=== PATIENT | female | born 1965 | race Caucasian/White ===

== ENCOUNTER 2017-09-23 17:42 | Inpatient (IN) | payer BC ==
[~2017-09-23] VITALS: Ht 175.3 cm; Wt 107.0 kg
[2017-09-23] MEDS ORDERED: SODIUM CHLORIDE 0.9% 1000ML 1,000 ML IV STA ×2 (18:13→20:28)
[2017-09-23] MEDS ORDERED: ACET-1487 PO (18:27)
[2017-09-23 18:41] LABS: HEMATOCRIT 40.3 % (37-47); HEMOGLOBIN 13.3 g/dL (12.0-16.0); MEAN CELL VOLUME 90.6 fL (80-100); MEAN CORPUSCULAR HEMOGLOBIN 29.9 pg (25-34); MEAN PLATELET VOLUME 10.3 fL (7.4-10.4); PLATELET COUNT 304 K/uL (130-400); RED CELL DISTRIBUTION WIDTH CV 13.2 % (11.5-14.5); RED CELL DISTRIBUTION WIDTH SD 43.6 fL (36.4-46.3); WHITE BLOOD COUNT 26.93 K/uL (4.8-10.8)
[2017-09-23 18:59] LABS: BASO % 0.1 %; BASO ABS # 0.03 K/uL (0-0.2); EOS % 0.1 %; EOS ABS # 0.03 K/uL (0-0.5); IG# 0.09 K/uL (0.00-0.02); LYMPH % 6.2 %; LYMPH ABS # 1.68 K/uL (1.2-3.4); MONO % 7.9 %; MONO ABS # 2.14 K/uL (0.11-0.59); NEUT % 85.4 %; NEUT ABS # 22.96 K/uL (1.4-6.5); PTT PATIENT 22.9 SECONDS (21.0-31.0)
--- NOTE | 2017-09-23 19:06 | EMERGENCY ROOM VISIT NOTE ---
History Report prepared by Roger: Raysa Tan Under the Supervision of: Dr. Oziel Winchester M.D. First contact with patient: 17:43 Chief Complaint: SYNCOPE Stated Complaint: MULTIPLE SYNCOPAL EPISODES History of Present Illness The patient is a 52 year old white female with a past medical history of arrhythmia who presents to the ED with a cc of 3 episodes of syncope beginning 1 hour ago. She notes she fell down a step about 2.5 hours ago, and hit her L buttocks and Achilles tendon. The patient states she felt like she was going to pass out after this fall, but did not lose consciousness at this time. She reports she laid on the ground for 3-5 minutes before her sister helped her get to her feet. The patient notes she began to feel faint an hour after this fall, and had an episode of syncope. Her sister reports she witnessed this episode, and the patient twitched a little, before coming-to about 7 seconds later. She notes the patient had a total of 3 episodes of syncope before EMS arrived. The patient reports feeling weak and notes her discomfort is a 3-4/10 at this time. She states she has a little cough as she is fighting the tail end of a cold. The patient denies nausea, vomiting, or fevers. She notes she did not become incontinent during the syncopal episodes and denies a history of seizures. The patient states she does not take any blood thinners. She notes she is visiting from [place] this summer to take care of her ill father. Source of History: patient, family (sister) Onset: 1 hour Position: head Quality: other (syncope) Timing: other (3 epsiodes) Associated Symptoms: + cough, + weakness, No nausea, No vomiting Note: Denies: incontinence Review of Systems See HPI for pertinent positives and negatives. A total of ten systems were reviewed and were otherwise negative. Past Medical & Surgical Medical Problems: (1) Arrhythmia (2) Bradycardia (3) Pre-diabetes (4) Syncopal episodes Family History FHx: cancer FHx: diabetes mellitus FHx: hypertension FHx: lung cancer FHx: stroke Social History Smoking Status: Never Smoker Smokeless Tobacco Use: No Alcohol Use: occasionally (2-3 times/week) Marital Status: single Housing Status: lives alone Occupation Status: employed Current/Historical Medications Scheduled PRN Acetaminophen (Tylenol Arthritis Ext Rel), 650 MG PO UD PRN for Pain Allergies Coded Allergies: No Known Allergies (Unverified , 09/23/17) Physical Exam Vital Signs Date Time Temp Pulse Resp B/P (MAP) Pulse Ox O2 Delivery O2 Flow Rate FiO2 09/23/17 20:54 82 09/23/17 20:39 75 18 123/58 99 Room Air 09/23/17 19:42 75 16 135/62 99 Room Air 09/23/17 18:42 72 15 123/65 100 Nasal Cannula 3.0 09/23/17 18:37 66 09/23/17 18:33 32 09/23/17 18:33 0 09/23/17 18:32 0 09/23/17 18:28 70 126/69 78 124/67 44 09/23/17 17:57 64 09/23/17 17:49 36.9 65 18 139/55 100 Room Air 09/23/17 17:49 100 Room Air Physical Exam GENERAL: Awake, alert, well-appearing, NAD HENT: Normocephalic, atraumatic. EYES: Normal conjunctiva. Sclera non-icteric. PERRL. No anisocoria. NECK: Supple. No nuchal rigidity. FROM. RESPIRATORY: CTAB, no rhonchi, wheezing, crackles CARDIAC: RRR, no MRG ABDOMEN: Soft, NTND, BS+ MSK: No chest wall TTP, no LE edema. L gluteal and sacral ecchymosis. NEURO: CN 2-12 intact, 5/5 upper and lower extremity strength, no dysmetria, no drift, good finger to nose, no sensory deficits. Finger count grossly normal. SKIN: No rash or jaundice noted. Medical Decision & Procedures ER Provider Diagnostic Interpretation: Radiology results as stated below per my review and radiologist interpretation: CT SCAN OF THE BRAIN WITHOUT IV CONTRAST CLINICAL HISTORY: Change in mental status. COMPARISON STUDY: No priors. TECHNIQUE: Unenhanced axial CT scan of the brain is performed from the vertex to the skull base. A dose lowering technique was utilized adhering to the principles of ALARA. CT DOSE: 614.27 mGy.cm FINDINGS: Brain parenchyma: The brain parenchyma is normal in appearance. There is no hemorrhage, mass effect, or evidence of acute territorial ischemia by CT criteria. Fitzpatrick-white matter is preserved. No extra-axial fluid collection is seen. Ventricles, sulci, cisterns: Normal in configuration. Intracranial vasculature: The visualized intracranial vasculature at the skull base is normal in appearance. Calvarium: Unremarkable. Sinuses and mastoids: The visualized paranasal sinuses are clear. The mastoid air cells are well pneumatized. Orbits: The bony orbits are grossly intact. IMPRESSION: There is no hemorrhage, mass effect, or evidence of acute territorial ischemia by CT criteria. Electronically signed by: Cyril Lipscomb M.D. 09/23/2017 7:30 PM Dictated Date/Time: 09/23/2017 7:29 PM CHEST ONE VIEW PORTABLE HISTORY: elevated wbc, productive cough COMPARISON: None. FINDINGS: The lungs are clear. Cardiac silhouette is normal in size. No pleural effusions. No pneumothorax. IMPRESSION: No acute process. Electronically signed by: Andrés Bonds M.D. 09/23/2017 8:18 PM Dictated Date/Time: 09/23/2017 8:17 PM SACRUM COCCYX MIN 2 VIEWS CLINICAL HISTORY: s/p fall, sacral pain and low back pain and L gluteal ecchymosis COMPARISON STUDY: Pelvis and left hip 09/23/2017. FINDINGS: No fractures or subluxation within the sacrum or coccyx. Anterior angulation of the coccyx is considered a normal variant. Presacral soft tissues are intact. There is an oval-shaped 14 x 4.5 cm density within the gluteal soft tissues best seen on the lateral view. This favors a soft tissue hematoma. IMPRESSION: 1. No fractures within the sacrum or coccyx. 2. A 14 x 4.5 cm density within the gluteal soft tissues likely represents a soft tissue hematoma. L PELVIS/UNILATERAL HIP 1 VIEW CLINICAL HISTORY: s/p fall. Left hip pain. COMPARISON STUDY: None. FINDINGS: No fracture or dislocation within the pelvis or hips. Mild cartilage space narrowing within the left hips and small osteophytes at the acetabula consistent with degenerative change. Soft tissues are unremarkable. The sacrum appears intact. IMPRESSION: Mild degenerative changes within the bilateral hips. No fracture or dislocation within the pelvis or hips. Electronically signed by: Andrés Bonds M.D. 09/23/2017 8:17 PM Dictated Date/Time: 09/23/2017 8:11 PM Laboratory Results 09/23/17 18:28 Red Blood Count 4.45, Mean Corpuscular Volume 90.6, Mean Corpuscular Hemoglobin 29.9, Mean Corpuscular Hemoglobin Concent 33.0, Mean Platelet Volume 10.3, Neutrophils (%) (Auto) 85.4, Lymphocytes (%) (Auto) 6.2, Monocytes (%) (Auto) 7.9, Eosinophils (%) (Auto) 0.1, Basophils (%) (Auto) 0.1, Neutrophils # (Auto) 22.96, Lymphocytes # (Auto) 1.68, Monocytes # (Auto) 2.14, Eosinophils # (Auto) 0.03, Basophils # (Auto) 0.03 09/23/17 18:28 Test 09/23/17 18:28 White Blood Count 26.93 K/uL (4.8-10.8) Red Blood Count 4.45 M/uL (4.2-5.4) Hemoglobin 13.3 g/dL (12.0-16.0) Hematocrit 40.3 % (37-47) Mean Corpuscular Volume 90.6 fL (80-100) Mean Corpuscular Hemoglobin 29.9 pg (25-34) Mean Corpuscular Hemoglobin Concent 33.0 g/dl (32-36) Platelet Count 304 K/uL (130-400) Mean Platelet Volume 10.3 fL (7.4-10.4) Neutrophils (%) (Auto) 85.4 % Lymphocytes (%) (Auto) 6.2 % Monocytes (%) (Auto) 7.9 % Eosinophils (%) (Auto) 0.1 % Basophils (%) (Auto) 0.1 % Neutrophils # (Auto) 22.96 K/uL (1.4-6.5) Lymphocytes # (Auto) 1.68 K/uL (1.2-3.4) Monocytes # (Auto) 2.14 K/uL (0.11-0.59) Eosinophils # (Auto) 0.03 K/uL (0-0.5) Basophils # (Auto) 0.03 K/uL (0-0.2) RDW Standard Deviation 43.6 fL (36.4-46.3) RDW Coefficient of Variation 13.2 % (11.5-14.5) Immature Granulocyte % (Auto) 0.3 % Immature Granulocyte # (Auto) 0.09 K/uL (0.00-0.02) Prothrombin Time 10.7 SECONDS (9.0-12.0) Prothromb Time International Ratio 1.0 (0.9-1.1) Activated Partial Thromboplast Time 22.9 SECONDS (21.0-31.0) Partial Thromboplastin Ratio 0.9 Anion Gap 8.0 mmol/L (3-11) Est Creatinine Clear Calc Drug Dose 75.7 ml/min Estimated GFR () 65.7 Estimated GFR (Non- 56.7 BUN/Creatinine Ratio 25.2 (10-20) Calcium Level 8.7 mg/dl (8.5-10.1) Phosphorus Level 1.3 mg/dl (2.5-4.9) Magnesium Level 2.1 mg/dl (1.8-2.4) Total Bilirubin 0.3 mg/dl (0.2-1) Direct Bilirubin < 0.1 mg/dl (0-0.2) Aspartate Amino Transf (AST/SGOT) 14 U/L (15-37) Alanine Aminotransferase (ALT/SGPT) 27 U/L (12-78) Alkaline Phosphatase 52 U/L (45-117) Troponin I < 0.015 ng/ml (0-0.045) Total Protein 7.4 gm/dl (6.4-8.2) Albumin 3.9 gm/dl (3.4-5.0) Thyroid Stimulating Hormone (TSH) 0.734 uIu/ml (0.300-4.500) Laboratory results reviewed by me Medications Administered Medications (Trade) Dose Ordered Sig/Kari Route Start Time Stop Time Status Last Admin Dose Admin Sodium Chloride 1,000 ml @ 999 mls/hr Q1H1M STAT IV 09/23/17 18:13 09/23/17 19:13 DC 09/23/17 18:40 999 MLS/HR Potassium Phosphate 30 mmol/ Sodium Chloride 510 ml @ 88 mls/hr NOW ONCE IV 09/23/17 20:00 09/24/17 01:47 09/23/17 20:37 88 MLS/HR Sodium Chloride 1,000 ml @ 999 mls/hr Q1H1M STAT IV 09/23/17 20:28 09/23/17 21:28 09/23/17 20:37 999 MLS/HR ECG Per My Interpretation Indication: syncope Rate (beats per minute): 65 Findings: Q waves (Inferior), other (normal intervals. normal axis. ) Comparison ECG Date: Repeat EKG Change: no significant change (Rate increased to 70. No other change.) ED Course 1752: The patient was evaluated in room B2. A complete history and physical exam was performed. 1835: Concern for syncope. GCS 14, following commands, appears pale. 1939: The patient had a negative FAST exam. Patient w/o pericardial effusion, good squeeze. 2000: [facility] the [facility] The patient will be evaluated for further treatment and disposition. 2007: I reevaluated the patient. She verbalized understanding and agreement with the treatment plan. Medical Decision Nursing notes reviewed. Ancillary studies and prior records reviewed. The patient is a 52 year old white female with a past medical history of arrhythmia who presents to the ED with a cc of 3 episodes of syncope beginning 1 hour ago. Etiologies such as vasovagal event, infection, hypoglycemia, electrolyte abnormalities, cardiac sources, intracerebral event, toxicologic, neurologic, as well as others were entertained. Patient was seen and evaluated the bedside. Patient did report having a mechanical fall where she struck her left buttock on the edge of a stair. This was a low level fall. She did not fall down the stairs but just down one stair. The patient did have some pain in the left buttock area and does have some noted ecchymosis. The patient has been ambulatory. The patient did have 2 -3 subsequent syncopal episodes. There was a concern of possible shaking. But the patient was not postictal. The patient had a normal blood sugar upon arrival. The patient has a nonfocal neurologic exam. Patient did blood work completed, EKG, troponin, chest x-ray, and coccygeal/ sacrum and left lower extremity films ordered. Patient also did have CT of the brain ordered. Patient's EKG does show a Q-wave in the inferior lead III but no acute ischemic changes. I was called to the bedside as the patient did have a questionable period of pulselessness and/or apnea. This subsided fairly quickly but the patient was very pale in appearance. The patient was awake and alert with a GCS of 14. The patient was following commands appropriately. A repeat EKG was obtained and the patient did have pads placed on her chest. Patient's blood work did show an elevated white blood cell count but normal H&H and platelet count. I did perform a bedside ultrasound which showed that the patient appeared to have fairly good squeeze and no evidence of any pericardial effusion. The IVC was fairly flat. The patient was not complaining of any chest pains or shortness of breath. The patient does not complain of any headache. There is no evidence of any free fluid in the pelvis, left upper quadrant, right upper quadrant per the FAST exam. I believe PE or dissection less likely given the patient's lack of symptoms and no evidence of plethoric IVC and the patient is not hypotensive, tachycardic, nor hypertensive. Patient CT the brain negative. Patient was noted to have low phosphorus. IV replacement was ordered. Given the patient's recurrent syncope and questionable apnea pulseless episode I believe she would benefit from further evaluation and treatment in telemetry. I did speak with the on-call hospitalist who agreed to further evaluate and treat the patient. The patient was admitted to the medicine service. Further x-rays did not show any acute changes with the exception of a likely hematoma in the left gluteal region which is consistent with the patient's exam. Given the patient's normal H&H, lack of tachycardia, and normal blood pressure I would be less likely to believe that the patient is having an active acute ongoing bleed in the left buttock area. A CT of the abdomen pelvis was ordered by the hospitalist for further evaluation. Medication Reconcilliation Current Medication List: was personally reviewed by me Blood Pressure Screening Patient's blood pressure: Normal blood pressure Blood pressure disposition: Did not require urgent referral Consults Time Called: 1947 Consulting Physician: Blane Rendon hospitalist Returned Call: 2000 Discussed the patient's case with Blane Rendon hospitalist. The patient will be evaluated for further treatment and disposition. Impression Primary Impression: Syncope Additional Impressions: Fall Contusion of buttock Hypophosphatemia Scribe Attestation The scribe's documentation has been prepared under my direction and personally reviewed by me in its entirety. I confirm that the note above accurately reflects all work, treatment, procedures, and medical decision making performed by me. Departure Information Dispostion Being Evaluated By Hospitalist Patient Instructions My [facility] Problem Qualifiers Primary Impression: Syncope Syncope type: unspecified Qualified Codes: R55 - Syncope and collapse Additional Impressions: Fall Encounter type: initial encounter Qualified Codes: W19.XXXA - Unspecified fall, initial encounter Contusion of buttock Encounter type: initial encounter Qualified Codes: S30.0XXA - Contusion of lower back and pelvis, initial encounter
--- NOTE | 2017-09-23 19:31 | DIAGNOSTIC IMAGING REPORT ---
CT SCAN OF THE BRAIN WITHOUT IV CONTRAST CLINICAL HISTORY: Change in mental status. COMPARISON STUDY: No priors. TECHNIQUE: Unenhanced axial CT scan of the brain is performed from the vertex to the skull base. A dose lowering technique was utilized adhering to the principles of ALARA. CT DOSE: 614.27 mGy.cm FINDINGS: Brain parenchyma: The brain parenchyma is normal in appearance. There is no hemorrhage, mass effect, or evidence of acute territorial ischemia by CT criteria. Fitzpatrick-white matter is preserved. No extra-axial fluid collection is seen. Ventricles, sulci, cisterns: Normal in configuration. Intracranial vasculature: The visualized intracranial vasculature at the skull base is normal in appearance. Calvarium: Unremarkable. Sinuses and mastoids: The visualized paranasal sinuses are clear. The mastoid air cells are well pneumatized. Orbits: The bony orbits are grossly intact. IMPRESSION: There is no hemorrhage, mass effect, or evidence of acute territorial ischemia by CT criteria. Electronically signed by: Cyril Lipscomb M.D. 09/23/2017 7:30 PM Dictated Date/Time: 09/23/2017 7:29 PM
[2017-09-23 19:33] LABS: ALBUMIN 3.9 gm/dl (3.4-5.0); ALKALINE PHOSPHATASE 52 U/L (45-117); ALT/SGPT 27 U/L (12-78); AST/SGOT 14 U/L (15-37); BLOOD UREA NITROGEN 28 mg/dl (7-18); CALCIUM 8.7 mg/dl (8.5-10.1); CARBON DIOXIDE 24 mmol/L (21-32); CREATININE 1.11 mg/dl (0.60-1.20); GLUCOSE 179 mg/dl (70-99); PHOSPHORUS 1.3 mg/dl (2.5-4.9); POTASSIUM 3.9 mmol/L (3.5-5.1); SODIUM 136 mmol/L (136-145); TOTAL PROTEIN 7.4 gm/dl (6.4-8.2)
[2017-09-23] MEDS ORDERED: POTASSIUM PHOS 3 MMOL/1 ML INFUSION IV STA (19:45)
[2017-09-23] MEDS ORDERED: POTASSIUM PHOSPHATE INJ 30 MMOL in SODIUM CHLORIDE 0.9% 500ML 500 ML IV ONE (20:00)
--- NOTE | 2017-09-23 20:18 | DIAGNOSTIC IMAGING REPORT ---
L PELVIS/UNILATERAL HIP 1 VIEW CLINICAL HISTORY: s/p fall. Left hip pain. COMPARISON STUDY: None. FINDINGS: No fracture or dislocation within the pelvis or hips. Mild cartilage space narrowing within the left hips and small osteophytes at the acetabula consistent with degenerative change. Soft tissues are unremarkable. The sacrum appears intact. IMPRESSION: Mild degenerative changes within the bilateral hips. No fracture or dislocation within the pelvis or hips. Electronically signed by: Andrés Bonds M.D. 09/23/2017 8:17 PM Dictated Date/Time: 09/23/2017 8:11 PM
--- NOTE | 2017-09-23 20:20 | DIAGNOSTIC IMAGING REPORT ---
CHEST ONE VIEW PORTABLE HISTORY: elevated wbc, productive cough COMPARISON: None. FINDINGS: The lungs are clear. Cardiac silhouette is normal in size. No pleural effusions. No pneumothorax. IMPRESSION: No acute process. Electronically signed by: Andrés Bonds M.D. 09/23/2017 8:18 PM Dictated Date/Time: 09/23/2017 8:17 PM
[2017-09-23] MEDS ORDERED: POLYETHYLENE (MIRALAX) 17 GM PACK PO PRN (20:30)
[2017-09-23] MEDS ORDERED: NITROGLYCERIN 0.4 MG SL PER TAB CHARGE SL PRN (20:30)
[2017-09-23] MEDS ORDERED: ALUMINUM/MAGNESIUM/SIMETH (MAALOX MAX) 30 ML UDC PO PRN (20:30)
--- NOTE | 2017-09-23 20:45 | DIAGNOSTIC IMAGING REPORT ---
SACRUM COCCYX MIN 2 VIEWS CLINICAL HISTORY: s/p fall, sacral pain and low back pain and L gluteal ecchymosis COMPARISON STUDY: Pelvis and left hip 09/23/2017. FINDINGS: No fractures or subluxation within the sacrum or coccyx. Anterior angulation of the coccyx is considered a normal variant. Presacral soft tissues are intact. There is an oval-shaped 14 x 4.5 cm density within the gluteal soft tissues best seen on the lateral view. This favors a soft tissue hematoma. IMPRESSION: 1. No fractures within the sacrum or coccyx. 2. A 14 x 4.5 cm density within the gluteal soft tissues likely represents a soft tissue hematoma. Electronically signed by: Andrés Bonds M.D. 09/23/2017 8:44 PM Dictated Date/Time: 09/23/2017 8:42 PM
[2017-09-23 21:25] VITALS: BP 138/78; PULSE 77; TEMP 36.9; Ht 175.3 cm; Wt 107.0 kg
--- NOTE | 2017-09-23 21:58 | DIAGNOSTIC IMAGING REPORT ---
ABDOMEN AND PELVIS CT WITHOUT CONTRAST CT DOSE: 803.04 mGy.cm HISTORY: FALL. CONTUSION IN BUTTOCK REGION TECHNIQUE: Multiaxial CT images of the abdomen and pelvis were performed without contrast. A dose lowering technique was utilized adhering to the principles of ALARA. COMPARISON STUDY: Pelvis and left hip 09/23/2017. FINDINGS: Within the left lower flank/gluteal region there is a 16 x 13 x 3 cm subcutaneous hematoma. There is surrounding fat stranding consistent with additional contusion. Mild asymmetric enlargement of the left gluteus raegan muscle and comparison to the right which likely represents a small intramuscular hematoma. No fractures within the visualized osseous structures. The lung bases are clear. No retroperitoneal hematoma. The unenhanced liver, spleen, adrenal glands, and pancreas are unremarkable. Subtle hyperdensity layering within the gallbladder may represent small stones. Normal left kidney. There are 3 stones within the right kidney with the largest measuring 1 cm. No ureteral stones. No hydronephrosis. The bladder, uterus, and adnexa are unremarkable. No retroperitoneal lymphadenopathy. Suboptimal evaluation for bowel pathology due to the lack of intravenous and oral contrast. However, no evidence for bowel obstruction. Multiple colonic diverticula. There is minimal inflammatory change adjacent to a single diverticulum within the distal descending colon best seen on image 268. This is consistent with a developing acute diverticulitis. No perforation or abscess. Normal appendix. IMPRESSION: 1. There is a 16 x 13 x 3 cm subcutaneous hematoma within the left lower flank/gluteal region. There is surrounding fat stranding consistent with additional subcutaneous contusion. 2. Mild asymmetric enlargement of the left gluteus raegan muscle in comparison to the right which likely represents a small intramuscular hematoma. 3. No fractures within the visualized osseous structures. 4. Developing acute diverticulitis at the descending colon. No perforation or abscess identified. 5. Right-sided nephrolithiasis. No hydronephrosis. Electronically signed by: Andrés Bonds M.D. 09/23/2017 9:56 PM Dictated Date/Time: 09/23/2017 9:42 PM
[2017-09-23] MEDS: INSULIN ASPART 100 UNITS/ML 3 ML PEN SC SCH (22:00)
[2017-09-23] MEDS ORDERED: GLUCAGON FOR INJ 1 MG VIAL IM PRN (22:00)
[2017-09-23] MEDS ORDERED: CEFTRIAXONE SOD INJ 2,000 MG in DEXTROSE 5% 50ML 50 ML IV SCH (22:00)
[2017-09-23] MEDS ORDERED: GLUCOSE 10 TABS/TUBE PO PRN (22:00)
[2017-09-23] MEDS ORDERED: GLUCOSE 40% GEL 15 GM TUBE PO PRN (22:00)
[2017-09-23] MEDS ORDERED: DEXTROSE 50% 50 ML SYR IV PRN (22:00)
[2017-09-23] MEDS ORDERED: CARBOHYDRATES FOR HYPOGLYCEMIA PO PRN (22:00)
[2017-09-23] MEDS: SODIUM CHLORIDE 0.9% 1000ML 1,000 ML IV SCH (22:04)
[2017-09-23] MEDS ORDERED: PIPERACILL/TAZOBAC CONSULT ACTIVE PRN (22:30)
[2017-09-23 22:46] LABS: HEMOGLOBIN 12.7 g/dL (12.0-16.0)
[2017-09-23] MEDS ORDERED: PIPERACILL/TAZOBAC IV 3.375 GM in DEXTROSE 5% 100ML 100 ML IV ONE (23:00)
--- NOTE | 2017-09-23 23:08 | HISTORY & PHYSICAL EXAMINATION ---
DATE OF ADMISSION: 09/23/2017 CHIEF COMPLAINT: Syncope. HISTORY OF PRESENT ILLNESS: This is a 52-year-old female with past medical history significant for obesity and prediabetes, presents with syncopal episodes. The patient is from [place] and has come to [place] to visit her father who is sick to take care of him and also for vacation for the summer. Today, she reports it was wet because of rain and she slipped on the steps of the porch and had a mechanical fall and she fell on her buttocks. Her sister helped her to get up.When she stood up she and had a syncopal episode where her sister tried to wake her up with a slap on the face, but she noticed that her eyes were rolling up and felt itching of the shoulder, but no shaking of hands or legs, no tongue biting, no bowel or bladder incontinence. It lasted for a few seconds and she came up.Had total of 3 episodes before the EMS arrived and when she was brought into the ER, she was alert and awake and vitals stable. When they were checking her blood pressure lying, sitting, and standing, she was okay when she was lying and sitting, but when she tried to get up , she again passed out and there was a brief period of bradycardia and was not responding, but then again she came back and she is stable currently. Patient says she did not eat or drink much for last 3 days because she did not feel like drinking.Otherwise she was doing okay. Denies any headaches. No dizziness, no earache, no runny nose, no blurred vision, no sore throat or difficulty swallowing. Some congestion from her sinuses. No chest pain, no shortness of breath, no cough, no fever, no chills, no nausea, . Normal appetite. No recent weight gain or weight loss. Has some night flashes. Has some lower abdominal cramps which are there for some time. Normal bowel and bladder movements. Denies any blood in the stools or black stools. Denies any blood in the urine. No swelling of the legs, no rash. Currently, resting comfortably and hemodynamically stable. The patient had this kind of presyncopal symptoms whenever she was dehydrated in the past. ALLERGIES: No known drug allergies. PAST MEDICAL HISTORY: As mentioned above. PAST SURGICAL HISTORY: None. MEDICATIONS: The patient is not taking any medications currently except for the [id number] p.r.n. medications, both Tylenol and Benadryl. FAMILY HISTORY: Significant for father and brother had diabetes. Father had prostate cancer, astrocytoma of the spine, and melanoma of the foot, which was excised. He also has recently had 2 tick-borne illnesses. Mother had a stroke. SOCIAL HISTORY: No smoking history. Used drink alcohol drink every day but quit about 10 months ago. Right now drinks couple of times a week. Visiting from [place] to [place] to take care of her father for the summer. REVIEW OF SYSTEMS: As per HPI. Rest of review of systems negative. PHYSICAL EXAMINATION: GENERAL: The patient is obese, not in distress. VITAL SIGNS: Temperature 36.9, pulse 75, respiratory rate 16, blood pressure 135/62, oxygen 99% on 3 liters. HEENT: No pallor, no icterus. Pupils equal, round, reactive to light. NECK: No JVD or neck masses, no carotid bruits. CARDIOVASCULAR: S1, S2 heard, regular rate and rhythm, no murmur, no gallop. RESPIRATORY SYSTEM: Clear to auscultation bilaterally. No wheezing, no crackles. ABDOMEN: Soft, bowel sounds present. Nontender. No distention. CENTRAL NERVOUS SYSTEM: Cranial nerves II through XII grossly intact, nonfocal. EXTREMITIES: No edema, no erythema. LABORATORY DATA: WBC 26.9, hemoglobin 13.3, hematocrit 40.3, platelets 304. Sodium 136, potassium 3.7, chloride 104, bicarbonate 24, BUN 28, creatinine 1.1, serum glucose 179, calcium 8.7, phosphorus 1.3, magnesium 2.1, total bilirubin 0.3, direct bilirubin less than 0.1, AST 14, ALT 27, alkaline phosphatase 52. Troponin 1 less than 0.01, . PT 10.7, INR 1, APTT 22.9. Left pelvic and hip x-ray, mild degenerative changes in the bilateral hips, no fracture or dislocation within the pelvis or hips. CT of the head, no acute findings seen. Chest x-ray, no acute process seen. EKG: Normal sinus rhythm at the rate of 70. No significant change from the previous EKG found. ASSESSMENT AND PLAN: 1. This 52-year-old female presents with syncopal episodes post mechanical fall on the porch on the steps because of wetness from the rain. After that she had 3 episodes of syncopal episodes, one in the ER when she stood up for blood pressure check up when she heart rate went low. She says she is not drinking much since last 3 days because she did not feel like drinking. She is on IV fluids. Check orthostatic hypotension. Also echocardiogram and close monitor on tele floor and because of these recurrent episodes, we will consult cardiology for further opinion. 2. Hypophosphatemia, we will replace. 3. Fall and Left gluteal hematoma 13x 14cm hematoma. follow h and h. Surgery consult. 4. Leukocytosis,possible stress. Early diverticulitis on ct scan. started on iv Zosyn. Surgery consult. 5. Prediabetes, We will check HbA1c level and place on insulin sliding scale. 6. Deep venous thrombosis prophylaxis, sequential compression devices for now. 7. Disposition: Admit to tele floor. Expect to discharge home and follow with her family doctor. Level 1 full code. MTDD
[2017-09-23 23:22] VITALS: BP 143/86; PULSE 75; TEMP 36.9; O2SAT 99
[2017-09-24] VITALS (7 sets, daily range): BP systolic 111–129; BP diastolic 62–77; PULSE 81–91; TEMP 36.6–37.1; O2SAT 98–100
[2017-09-24] MEDS: PIPERACILL/TAZOBAC IV 3.375 GM in DEXTROSE 5% 100ML 100 ML IV SCH ×3 (03:19→20:51)
[2017-09-24] MEDS ORDERED: SODIUM CHLORIDE 0.65% NA SOLN 45 ML (OCEAN) PRN (04:15)
[2017-09-24] MEDS: FLUTICASONE PROPIONATE NA SPR 16 GM BTL SCH ×2 (04:27→07:54)
[2017-09-24 04:47] LABS: BASO % 0.2 %; BASO ABS # 0.02 K/uL (0-0.2); EOS % 0.4 %; EOS ABS # 0.04 K/uL (0-0.5); HEMATOCRIT 33.2 % (37-47); HEMOGLOBIN 10.9 g/dL (12.0-16.0); IG# 0.01 K/uL (0.00-0.02); LYMPH % 21.5 %; LYMPH ABS # 2.04 K/uL (1.2-3.4); MEAN CELL VOLUME 90.5 fL (80-100); MEAN CORPUSCULAR HEMOGLOBIN 29.7 pg (25-34); MEAN CORPUSCULAR HGB CONC 32.8 g/dl (32-36); MEAN PLATELET VOLUME 10.1 fL (7.4-10.4); MONO % 14.6 %; MONO ABS # 1.38 K/uL (0.11-0.59); NEUT % 63.2 %; NEUT ABS # 5.98 K/uL (1.4-6.5); PLATELET COUNT 256 K/uL (130-400); RED CELL DISTRIBUTION WIDTH CV 13.2 % (11.5-14.5); RED CELL DISTRIBUTION WIDTH SD 43.5 fL (36.4-46.3); WHITE BLOOD COUNT 9.47 K/uL (4.8-10.8)
[2017-09-24 04:49] LABS: BLOOD UREA NITROGEN 19 mg/dl (7-18); CALCIUM 7.4 mg/dl (8.5-10.1); CARBON DIOXIDE 23 mmol/L (21-32); CREATININE 0.83 mg/dl (0.60-1.20); GLUCOSE 101 mg/dl (70-99); SODIUM 139 mmol/L (136-145)
[2017-09-24 04:54] LABS: CKMB 1.5 ng/ml (0.5-3.6); PHOSPHORUS 3.4 mg/dl (2.5-4.9)
[2017-09-24] MEDS: SODIUM CHLORIDE 0.9% 1000ML 1,000 ML IV SCH ×2 (06:28→16:27)
[2017-09-24 06:39] LABS: HEMOGLOBIN A1C 6.3 % (4.5-5.6)
[2017-09-24] MEDS: INSULIN ASPART 100 UNITS/ML 3 ML PEN SC SCH ×4 (07:00→20:51)
[2017-09-24] MEDS ORDERED: DEXTROSE 5% 1000ML 1,000 ML IV SCH (07:15)
--- NOTE | 2017-09-24 08:21 | Cardiology Progress Note ---
Cardiology Progress Note Date of Service Sep 24, 2017. Cardiology Progress Note PRELIMINARY TRANSTHORACIC ECHOCARDIOGRAM REPORT. Name: BECCA HERNÁNDEZ Study Date: 09/24/2017 07:14 AM BP: 111/62 mmHg Patient Location: .^16^1 HR: 88 : 1965 (M/d/yyyy) Gender: Female Height: 69 in Age: 52 yrs Ethnicity: [place] Weight: 232 lb Ordering Physician: Gordon Sheikh Referring Physician: Self, Referred Performed By: Manju Stanley [facility] Reason For Study: SYNCOPE BSA: 2.2 m2. SUMMARY: The study was technically adequate. No regional wall motion abnormalities noted. Ejection Fraction = 65-70%. The right ventricle is normal in size and function. Doppler findings do not suggest pulmonary hypertension. Procedure Details A complete two-dimensional transthoracic echocardiogram was performed (2D, M- mode, Doppler and color flow Doppler). Left Ventricle The left ventricle is normal in size. There is mild concentric left ventricular hypertrophy. Left ventricular systolic function is normal. Ejection Fraction = 65-70%. The left ventricular wall motion is normal. No regional wall motion abnormalities noted. Right Ventricle The right ventricle is normal in size and function. Atria The left atrial size is normal. Right atrial size is normal. There is no evidence of atrial septal defect, but resolution does not allow assessment for a patent foramen ovale. Aortic Valve The aortic valve is trileaflet. There is no significant aortic regurgitation. Aortic stenosis is absent. Pulmonic Valve The pulmonary valve is not well seen, but the Doppler examination is normal without significant regurgitation or stenosis. Mitral Valve There is mild mitral annular calcification. Significant mitral regurgitation is absent. There is no mitral valve stenosis. Tricuspid Valve The tricuspid valve is normal. Significant tricuspid regurgitation is absent. Doppler findings do not suggest pulmonary hypertension. There is no tricuspid stenosis. Great Vessels The aortic root and proximal ascending aorta are normal sized. Normal inferior vena cava diameter and respiratory variation suggests normal central venous pressure. Pericardium/Pleural There is no pericardial effusion. Left Ventricular Diastolic Function Grade I diastolic dysfunction, (abnormal relaxation pattern).
--- NOTE | 2017-09-24 09:06 | Cardiology Consultation ---
Cardiology Consultation Date of Consultation: Sep 24, 2017 Requesting Physician: Dr. Sheikh Attending Medication Reconciliation Technician: Dr. Pérez (Mindi Serrato PA-C) History of Present Illness Patient is a 52 year old female who is a resident of [place] and currently spending the summer living with her father at their "summer cabin". She has no known medical issues, takes only PRN Tylenol on a regular basis, but admits not seeing a doctor in > 20 years. She reports being in her usual state of health yesterday when she went outside in the rain and slipped on a wet step on the porch landing on her buttocks. She reports fall was mechanical and not associated with dizziness, syncope or near syncope. She did not hit her head. She sat there for several minutes before attempting to stand up. She noted mild lightheadedness and everything went slightly "dim" upon standing. However she was able to walk inside and sit down. She noted soreness of her hip and buttock but otherwise felt okay. She went upstairs to get changed out of her wet clothes was sitting on her bed when her sister came to check on her. She felt everything suddenly "go black" and had a syncopal spell on the bed. She awoke several seconds later according to her sister. Blood pressure was reported to be 130/60 with a heart rate in the 60s on her monitor. Symptoms resolved quickly. No incontinence no shaking/ seizure like activity. She went down to sit on the porch and rest. there she had recurrent syncope, which sister described as her eyes rolled in the back of her head and she stopped breathing for about 30 seconds. 911 was summoned. Upon arrival, patient was alert and responsive. The gurney was not able to get on the porch, so upon standing and moving off the porch, patient had recurrent syncope. She has warning symptoms of "dimness" and lightheadedness prior to syncope. En route to ER, she felt "fine". In ER, EKG on arrival demonstrated NSR,normal EKG. Lactic acid was elevated. WBC elevated. Nursing staff attempted to do orthostatic vital signs. Upon standing patient had recurrent prodromal symptoms and she was assisted back to bed where she became pale diaphoretic and had recurrent syncope witnessed by the nurse. She was pulseless and apneic and compressions were started. She then awakened after about 30 seconds of CPR. Telemetry demonstrated symptomatic bradycardia with asystole during this time. Pacer/defibrillator pads were placed. Repeat EKG demonstrated normal sinus rhythm. Cardiac enzymes are unremarkable 2. Head CT was unremarkable, chest x-ray unremarkable. Pelvic CT demonstrated no acute fracture. Patient reports she has never experienced any similar symptoms in the past. She denies recent lightheadedness/dizziness, syncope or near syncope. She reports one episode of syncope when she was 20 after standing for an extended period of time. She denies a history of arrhythmias, murmur, CHF, CAD, prior echocardiogram/ stress test/cardiac catheterization or other cardiac testing. At time of consult patient's primary concern is sinus congestion and sinus headache. She also notes mild chest pressure/heaviness but attributes this to indigestion. May also be related to yesterday's chest compressions. EKG this AM unremarkable. Cardiac enzymes unremarkable this AM. No recurrent dizziness, lightheadedness, syncope or near syncope since yesterday in the ER. Telemetry reviewed overnight demonstrating normal sinus rhythm in the 60s. No significant pauses. Patient reports she has not been out of bed since event yesterday in the emergency room. No SOB/dyspnea. No orhtopneaa, PND or cough. No fever or chills. (Mindi Serrato PA-C) Past Medical/Surgical History Problem List: Medical Problems: (1) Arrhythmia (2) Bradycardia (3) Pre-diabetes (4) Syncopal episodes 5. Obesity (Mindi Serrato PA-C) Family History FHx: cancer FHx: diabetes mellitus FHx: hypertension FHx: lung cancer FHx: stroke No history of premature coronary artery disease or sudden cardiac . Father has afib. Maternal grandfather with "enlarged heart". (Midni Serrato PA-C) FHx: cancer FHx: diabetes mellitus FHx: hypertension FHx: lung cancer FHx: stroke (Yung Pérez D.[place]) Social History Smoking Status: Never Smoker Smokeless Tobacco Use: No Alcohol Use: occasionally (heavy alcohol, until about 1 year ago. Now 1-2 drinks per week) Marital Status: single Occupation: employed (Mindi Serrato PA-C) Review Of Systems General: The patient denies weight change, night sweats, fever, chills. Head: The patient denies headache and prior head trauma. Cardiovascular: The patient denies chest pain or chest discomfort, dyspnea on exertion, palpitations, PND, orthopnea, edema, spontaneous shortness of breath, syncope and near syncope. Pulmonary: The patient denies cough, wheeze, pleurisy, hemoptysis, sputum, and excessive snoring. Gastrointestinal: The patient denies nausea, vomiting, diarrhea, constipation, bloating, hematemesis, hematochezia, and abdominal pain. Skin: The patient denies diaphoresis and rash. Musculoskeletal: The patient denies joint pain, joint swelling, myalgia, back pain, neck pain and prior injuries. Neurological: The patient denies prior stroke and seizures (Mindi Serrato PA-C) Allergies Coded Allergies: No Known Allergies (Unverified , 09/23/17) Medications Reported Home Medications Medications Dose Route/Sig Max Daily Dose Days Date Category Dose Instructions Tylenol Arthritis Ext Rel (Acetaminophen) 650 Mg Tab 650 Mg PO UD PRN 09/23/17 Reported TAKE PER PACKAGE DIRECTIONS (Mindi Serrato PA-C) Physical Exam Vital Signs (Last 8hrs): Last 8 Hrs Date Time Temp Pulse Resp B/P (MAP) Pulse Ox O2 Delivery O2 Flow Rate FiO2 09/24/17 06:41 37.1 84 16 111/69 (83) 98 Room Air 09/24/17 03:17 36.6 82 16 111/62 (78) 100 Room Air General Appearance: Alert and Oriented x3. NAD. Head: Normocephalic Atraumatic. Eyes: PERRLA, EOMI, conjunctiva and sclera clear Neck: Supple. No carotid bruits noted. No JVD. No HJD. Respiratory: Breath sounds clear to auscultation bilaterally. No w/r/r. Cardiovascular: Reg rate and rhythm. S1 and S2 noted. No murmurs, rubs, gallops. PMI non displace. Abdomen: Normal bowel sounds, soft nontender. no abdominal bruits. Extremities: No edema, no clubbing or cyanosis. distal pulses 2/4 bilaterally. Neuro: No focal deficits. Psychiatric: Normal affect. (Mindi Serrato PA-C) Data Last 24 Hours Test 09/23/17 18:28 09/23/17 22:04 09/23/17 22:32 09/24/17 00:28 White Blood Count 26.93 K/uL Red Blood Count 4.45 M/uL Hemoglobin 13.3 g/dL 12.7 g/dL Hematocrit 40.3 % 38.0 % Mean Corpuscular Volume 90.6 fL Mean Corpuscular Hemoglobin 29.9 pg Mean Corpuscular Hemoglobin Concent 33.0 g/dl Platelet Count 304 K/uL Mean Platelet Volume 10.3 fL Neutrophils (%) (Auto) 85.4 % Lymphocytes (%) (Auto) 6.2 % Monocytes (%) (Auto) 7.9 % Eosinophils (%) (Auto) 0.1 % Basophils (%) (Auto) 0.1 % Neutrophils # (Auto) 22.96 K/uL Lymphocytes # (Auto) 1.68 K/uL Monocytes # (Auto) 2.14 K/uL Eosinophils # (Auto) 0.03 K/uL Basophils # (Auto) 0.03 K/uL RDW Standard Deviation 43.6 fL RDW Coefficient of Variation 13.2 % Immature Granulocyte % (Auto) 0.3 % Immature Granulocyte # (Auto) 0.09 K/uL Prothrombin Time 10.7 SECONDS Prothromb Time International Ratio 1.0 Activated Partial Thromboplast Time 22.9 SECONDS Partial Thromboplastin Ratio 0.9 Sodium Level 136 mmol/L Potassium Level 3.9 mmol/L Chloride Level 104 mmol/L Carbon Dioxide Level 24 mmol/L Anion Gap 8.0 mmol/L Blood Urea Nitrogen 28 mg/dl Creatinine 1.11 mg/dl Est Creatinine Clear Calc Drug Dose 75.7 ml/min Estimated GFR () 65.7 Estimated GFR (Non- 56.7 BUN/Creatinine Ratio 25.2 Random Glucose 179 mg/dl Calcium Level 8.7 mg/dl Phosphorus Level 1.3 mg/dl Magnesium Level 2.1 mg/dl Total Bilirubin 0.3 mg/dl Direct Bilirubin < 0.1 mg/dl Aspartate Amino Transf (AST/SGOT) 14 U/L Alanine Aminotransferase (ALT/SGPT) 27 U/L Alkaline Phosphatase 52 U/L Troponin I < 0.015 ng/ml Total Protein 7.4 gm/dl Albumin 3.9 gm/dl Thyroid Stimulating Hormone (TSH) 0.734 uIu/ml Lyme Disease IgM Antibody NEG Hepatitis C Antibody Screen NEG Bedside Glucose 140 mg/dl Lactic Acid Level 2.8 mmol/L Test 09/24/17 01:00 09/24/17 04:21 Urine Color YELLOW Urine Appearance CLEAR Urine pH 5.0 Urine Specific [place] 1.032 Urine Protein NEG Urine Glucose (UA) 3+ Urine Ketones 1+ Urine Occult Blood NEG Urine Nitrite NEG Urine Bilirubin NEG Urine Urobilinogen NEG Urine Leukocyte Esterase NEG White Blood Count 9.47 K/uL Red Blood Count 3.67 M/uL Hemoglobin 10.9 g/dL Hematocrit 33.2 % Mean Corpuscular Volume 90.5 fL Mean Corpuscular Hemoglobin 29.7 pg Mean Corpuscular Hemoglobin Concent 32.8 g/dl Platelet Count 256 K/uL Mean Platelet Volume 10.1 fL Neutrophils (%) (Auto) 63.2 % Lymphocytes (%) (Auto) 21.5 % Monocytes (%) (Auto) 14.6 % Eosinophils (%) (Auto) 0.4 % Basophils (%) (Auto) 0.2 % Neutrophils # (Auto) 5.98 K/uL Lymphocytes # (Auto) 2.04 K/uL Monocytes # (Auto) 1.38 K/uL Eosinophils # (Auto) 0.04 K/uL Basophils # (Auto) 0.02 K/uL RDW Standard Deviation 43.5 fL RDW Coefficient of Variation 13.2 % Immature Granulocyte % (Auto) 0.1 % Immature Granulocyte # (Auto) 0.01 K/uL Sodium Level 139 mmol/L Potassium Level 4.0 mmol/L Chloride Level 109 mmol/L Carbon Dioxide Level 23 mmol/L Anion Gap 7.0 mmol/L Blood Urea Nitrogen 19 mg/dl Creatinine 0.83 mg/dl Est Creatinine Clear Calc Drug Dose 100.7 ml/min Estimated GFR () 93.3 Estimated GFR (Non- 80.5 BUN/Creatinine Ratio 22.8 Random Glucose 101 mg/dl Estimated Average Glucose 134 mg/dl Hemoglobin A1c 6.3 % Lactic Acid Level 1.1 mmol/L Calcium Level 7.4 mg/dl Phosphorus Level 3.4 mg/dl Magnesium Level 2.1 mg/dl Total Creatine Kinase 142 U/L Creatine Kinase MB 1.5 ng/ml Creatine Kinase MB Ratio 1.1 Troponin I < 0.015 ng/ml Imaging: Pelvic CT: IMPRESSION: 1. There is a 16 x 13 x 3 cm subcutaneous hematoma within the left lower flank/gluteal region. There is surrounding fat stranding consistent with additional subcutaneous contusion. 2. Mild asymmetric enlargement of the left gluteus raegan muscle in comparison to the right which likely represents a small intramuscular hematoma. 3. No fractures within the visualized osseous structures. 4. Developing acute diverticulitis at the descending colon. No perforation or abscess identified. 5. Right-sided nephrolithiasis. No hydronephrosis. chest xray: no acute process Head CT: no acute findings EKG: On admission - NSR, normal EKG Repeat this AM - NSR, normal EKG Telemetry reviewed: Normal sinus bradycardia with sinus bradycardia and asystole yesterday at 18:32 in ER requiring compressions. (Mindi Serrato PA-C) Assessment & Plan ASSESSMENT and PLAN: 1. symptomatic bradycardia/SSS, with 4-5 episodes of syncope yesterday -one episode occurred in ER, with associated bradycardia, asystole, requiring chest compressions. -echo demonstrates normal LV function, preserved EF, no significant valvular disease -negative cardiac enzymes, normal EKG -EP consult for possible pacemaker implantation -keep NPO -Bed rest 2. Ongoing chest pressure -normal echo -non ischemic EKG -cardiac enzymes x2, repeat later this AM with repeat EKG -? secondary to compressions 3. Elevated WBC, now improved no signs of infectious process blood cultures pending Case discussed with Dr. Pérez. Will follow. (Mindi Serrato PA-C) CARDIOLOGY ATTENDING ADDENDUM: The patient was seen and personally examined. Agree with Mindi Serrato PA-C's findings and plans as documented above with additions as noted below. S: patient feels well with exception of chronic sinus pressure. No fevers or chills. On further reflection, she has occasional brief lightheaded episodes over the last few years, but no moira syncope with exception of one episode in her 20s. Father recently had tick bite and multisystem organ failure, for which he was hospitalized at [facility] [place] and treated with doxycycline for anaplasmosis. Pt has noted no flu like episodes , rashes, or tick bites. Lyme screen was negative. Impression: Syncope, symptoms reproduced in ED an associated with bradycardia, asystole. Echo- normal LVEF, no significant structural heart disease. Plan: EP consult, consider PPM. (Yung Pérez,[place].O.)
[2017-09-24] MEDS: ONDANSETRON INJ 2 MG/ML 2 ML VIAL IV PRN (10:19)
[2017-09-24 10:45] LABS: HEMATOCRIT 34.2 % (37-47); HEMOGLOBIN 11.3 g/dL (12.0-16.0)
[2017-09-24 11:10] LABS: CKMB 1.4 ng/ml (0.5-3.6)
--- NOTE | 2017-09-24 11:36 | Surgery Consultation ---
Consultation Date of Consultation: Sep 24, 2017. Attending Physician: Bassem Monet M.D. Reason for Consultation: Gluteal Hematoma, Diverticulitis History of Present Illness Gregoria is a pleasant 52 year-old female who presented to emergency room last evening after sustaining fall yesterday on a wet slippery rock [place] her [place]. She is a resident from [place] who is visiting her Father for the summer. She states she was in her normal state of health yesterday but slipped on a wet rock in the rain and fell on her buttocks. She denies of any dizziness or lightheadedness causing the fall and she did not hit her head. A few minutes later after getting up to the porch she felt lightheaded and dizzy. She then went upstairs into her bedroom and had an episode of syncope on the bed in which she gained consciousness in a few seconds per her sister who was present. She then later had another episode of syncope and was not breathing and 911 was called. She then had another episode of near syncope getting to the ambulance rnoxapater. Another episode of syncope in the emergency room with asystole during orthostatic BP readings in which CPR was started for 40 seconds. Her emergency room work-up included head CT which was unremarkable, labs which showed leukocytosis of 26K and elevated lactic acid at 2.8. She had a CT scan of abdomen and pelvis which showed large 16 cm x 13 x 3 cm hematoma of the left gluteus and a small diverticulum with surrounding infiltration of the descending colon however no abscess or free intraperitoneal air. Since admission, Gregoria states she is having more sinus troubles and headaches. Moderate aching dull pain of the left buttocks with significant bruising. No history of blood thinners but states she bruises very easily and it takes a while for bruises to heal. NO fever, chills, nausea, vomiting, chest pain, dizziness, shortness of breath, abdominal pain, diarrhea, constipation, or blood in stools. Repeat labs this am show resolution of leukocytosis and lactic acidosis. ( lactic acid 1.1) Cardiology consulted and recommend EP evaluation for possible pacemaker Past Medical/Surgical History Medical Problems: (1) Contusion of buttock Status: Acute (2) Fall Status: Acute (3) Hypophosphatemia Status: Acute (4) Syncope Status: Acute Family History FHx: cancer FHx: diabetes mellitus FHx: hypertension FHx: lung cancer FHx: stroke Social History Smoking Status: Never Smoker Smokeless Tobacco Use: No Alcohol Use: occasionally (heavy alcohol, until about 1 year ago. Now 1-2 drinks per week) Marital Status: single Housing Status: lives alone Occupation Status: employed Allergies Coded Allergies: No Known Allergies (Unverified , 09/23/17) Home Medications Scheduled PRN Acetaminophen (Tylenol Arthritis Ext Rel), 650 MG PO UD PRN for Pain Current Inpatient Medications Current Inpatient Medications Medications (Trade) Dose Ordered Sig/Kari Route Start Time Stop Time Status Last Admin Dose Admin Sodium Chloride 1,000 ml @ 100 mls/hr Q10H IV 09/23/17 20:28 10/23/17 20:27 09/24/17 06:28 100 MLS/HR Acetaminophen (Tylenol Tab) 650 mg Q4H PRN PO 09/23/17 20:30 10/23/17 20:29 Al Hydrox/Mg Hydrox/Simethicone (Maalox Max Susp) 15 ml Q4H PRN PO 09/23/17 20:30 10/23/17 20:29 Ondansetron HCl (Zofran Inj) 4 mg Q6H PRN IV 09/23/17 20:30 10/23/17 20:29 09/24/17 10:19 4 MG Nitroglycerin (Nitrostat Tab) 0.4 mg UD PRN SL 09/23/17 20:30 10/23/17 20:29 Polyethylene (Miralax Powder Packet) 17 gm DAILY PRN PO 09/23/17 20:30 10/23/17 20:29 Insulin Aspart (novoLOG ASPART) SLIDING SCALE G... ACHS SC 09/23/17 22:00 10/23/17 21:59 Glucose (Glucose 40% Gel) 15-30 GRAMS 15 GRAMS... UD PRN PO 09/23/17 22:00 10/23/17 21:59 Glucose (Glucose Chew Tab) 4-8 Tablets 4 Tabl... UD PRN PO 09/23/17 22:00 10/23/17 21:59 Dextrose (Dextrose 50% 50ML Syringe) 25-50ML 25ML FOR ... UD PRN IV 09/23/17 22:00 10/23/17 21:59 Glucagon (Glucagon Inj) 1 mg UD PRN IM 09/23/17 22:00 10/23/17 21:59 Carbohydrates (Carbohydrates For Hypoglycemia) 15-30 GRAMS 15 grams if BSG 54-69... UD PRN PO 09/23/17 22:00 10/23/17 21:59 Piperacillin Sod/ Tazobactam Sod 3.375 gm/Dextrose 115 ml @ 28.75 mls/ hr Q8H IV 09/24/17 04:00 10/04/17 03:59 09/24/17 03:19 28.75 MLS/HR Miscellaneous Information (Consult) 1 ea UD PRN N/A 09/23/17 22:30 10/23/17 22:29 Sodium Chloride (Astor Nasal Mcalester) 1 sprays PRN PRN NA 09/24/17 04:15 10/24/17 04:14 Fluticasone Propionate (Flonase Nasal Mcalester) 1 sprays DAILY NA 09/24/17 04:15 10/24/17 04:14 09/24/17 07:54 1 SPRAYS Review of Systems Constitutional: No fever, No chills, No sweats Respiratory: No cough, No shortness of breath, No dyspnea at rest Cardiovascular: No chest pain Abdomen: No pain, No nausea, No vomiting, No diarrhea, No constipation, No GI bleeding Hematologic / Lymphatic: No abnormal bleeding/bruising Integumentary: No rash Physical Exam Date Time Temp Pulse Resp B/P (MAP) Pulse Ox O2 Delivery O2 Flow Rate FiO2 09/24/17 08:00 Room Air 09/24/17 06:41 37.1 84 16 111/69 (83) 98 Room Air 09/24/17 03:17 36.6 82 16 111/62 (78) 100 Room Air 09/23/17 23:59 Room Air 09/23/17 23:22 36.9 75 16 143/86 (105) 99 Room Air 09/23/17 21:25 36.9 77 16 138/78 Room Air 09/23/17 20:54 82 09/23/17 20:39 75 18 123/58 99 Room Air 09/23/17 19:42 75 16 135/62 99 Room Air 09/23/17 18:42 72 15 123/65 100 Nasal Cannula 3.0 09/23/17 18:37 66 7/30/18 18:33 32 09/23/17 18:33 0 09/23/17 18:32 0 09/23/17 18:28 70 126/69 78 124/67 44 09/23/17 17:57 64 09/23/17 17:49 36.9 65 18 139/55 100 Room Air 09/23/17 17:49 100 Room Air General Appearance: WD/WN, no apparent distress Head: normocephalic, atraumatic Eyes: sclerae normal ENT: hearing grossly normal Neck: trachea midline Respiratory/Chest: no respiratory distress, no accessory muscle use Abdomen/GI: soft, no organomegaly, no pulsatile mass Back: normal inspection Extremities/Musculoskelatal: + pertinent finding (Large area of ecchymosis of the left gluteus, tender to palpation, some induration) Neurologic/Psych: alert, normal mood/affect, oriented x 3 Skin: normal color, warm/dry, no rash Laboratory Results Last 24 Hours Test 09/23/17 18:28 09/23/17 22:04 09/23/17 22:32 09/24/17 00:28 White Blood Count 26.93 K/uL Red Blood Count 4.45 M/uL Hemoglobin 13.3 g/dL 12.7 g/dL Hematocrit 40.3 % 38.0 % Mean Corpuscular Volume 90.6 fL Mean Corpuscular Hemoglobin 29.9 pg Mean Corpuscular Hemoglobin Concent 33.0 g/dl Platelet Count 304 K/uL Mean Platelet Volume 10.3 fL Neutrophils (%) (Auto) 85.4 % Lymphocytes (%) (Auto) 6.2 % Monocytes (%) (Auto) 7.9 % Eosinophils (%) (Auto) 0.1 % Basophils (%) (Auto) 0.1 % Neutrophils # (Auto) 22.96 K/uL Lymphocytes # (Auto) 1.68 K/uL Monocytes # (Auto) 2.14 K/uL Eosinophils # (Auto) 0.03 K/uL Basophils # (Auto) 0.03 K/uL RDW Standard Deviation 43.6 fL RDW Coefficient of Variation 13.2 % Immature Granulocyte % (Auto) 0.3 % Immature Granulocyte # (Auto) 0.09 K/uL Prothrombin Time 10.7 SECONDS Prothromb Time International Ratio 1.0 Activated Partial Thromboplast Time 22.9 SECONDS Partial Thromboplastin Ratio 0.9 Sodium Level 136 mmol/L Potassium Level 3.9 mmol/L Chloride Level 104 mmol/L Carbon Dioxide Level 24 mmol/L Anion Gap 8.0 mmol/L Blood Urea Nitrogen 28 mg/dl Creatinine 1.11 mg/dl Est Creatinine Clear Calc Drug Dose 75.7 ml/min Estimated GFR () 65.7 Estimated GFR (Non- 56.7 BUN/Creatinine Ratio 25.2 Random Glucose 179 mg/dl Calcium Level 8.7 mg/dl Phosphorus Level 1.3 mg/dl Magnesium Level 2.1 mg/dl Total Bilirubin 0.3 mg/dl Direct Bilirubin < 0.1 mg/dl Aspartate Amino Transf (AST/SGOT) 14 U/L Alanine Aminotransferase (ALT/SGPT) 27 U/L Alkaline Phosphatase 52 U/L Troponin I < 0.015 ng/ml Total Protein 7.4 gm/dl Albumin 3.9 gm/dl Thyroid Stimulating Hormone (TSH) 0.734 uIu/ml Lyme Disease IgM Antibody NEG Hepatitis C Antibody Screen NEG Bedside Glucose 140 mg/dl Lactic Acid Level 2.8 mmol/L Test 09/24/17 01:00 09/24/17 04:21 09/24/17 08:05 Urine Color YELLOW Urine Appearance CLEAR Urine pH 5.0 Urine Specific Kermit 1.032 Urine Protein NEG Urine Glucose (UA) 3+ Urine Ketones 1+ Urine Occult Blood NEG Urine Nitrite NEG Urine Bilirubin NEG Urine Urobilinogen NEG Urine Leukocyte Esterase NEG White Blood Count 9.47 K/uL Red Blood Count 3.67 M/uL Hemoglobin 10.9 g/dL Hematocrit 33.2 % Mean Corpuscular Volume 90.5 fL Mean Corpuscular Hemoglobin 29.7 pg Mean Corpuscular Hemoglobin Concent 32.8 g/dl Platelet Count 256 K/uL Mean Platelet Volume 10.1 fL Neutrophils (%) (Auto) 63.2 % Lymphocytes (%) (Auto) 21.5 % Monocytes (%) (Auto) 14.6 % Eosinophils (%) (Auto) 0.4 % Basophils (%) (Auto) 0.2 % Neutrophils # (Auto) 5.98 K/uL Lymphocytes # (Auto) 2.04 K/uL Monocytes # (Auto) 1.38 K/uL Eosinophils # (Auto) 0.04 K/uL Basophils # (Auto) 0.02 K/uL RDW Standard Deviation 43.5 fL RDW Coefficient of Variation 13.2 % Immature Granulocyte % (Auto) 0.1 % Immature Granulocyte # (Auto) 0.01 K/uL Sodium Level 139 mmol/L Potassium Level 4.0 mmol/L Chloride Level 109 mmol/L Carbon Dioxide Level 23 mmol/L Anion Gap 7.0 mmol/L Blood Urea Nitrogen 19 mg/dl Creatinine 0.83 mg/dl Est Creatinine Clear Calc Drug Dose 100.7 ml/min Estimated GFR () 93.3 Estimated GFR (Non- 80.5 BUN/Creatinine Ratio 22.8 Random Glucose 101 mg/dl Estimated Average Glucose 134 mg/dl Hemoglobin A1c 6.3 % Lactic Acid Level 1.1 mmol/L Calcium Level 7.4 mg/dl Phosphorus Level 3.4 mg/dl Magnesium Level 2.1 mg/dl Total Creatine Kinase 142 U/L Creatine Kinase MB 1.5 ng/ml Creatine Kinase MB Ratio 1.1 Troponin I < 0.015 ng/ml Bedside Glucose 106 mg/dl ABDOMEN AND PELVIS CT WITHOUT CONTRAST CT DOSE: 803.04 mGy.cm HISTORY: FALL. CONTUSION IN BUTTOCK REGION TECHNIQUE: Multiaxial CT images of the abdomen and pelvis were performed without contrast. A dose lowering technique was utilized adhering to the principles of ALARA. COMPARISON STUDY: Pelvis and left hip 09/23/2017. FINDINGS: Within the left lower flank/gluteal region there is a 16 x 13 x 3 cm subcutaneous hematoma. There is surrounding fat stranding consistent with additional contusion. Mild asymmetric enlargement of the left gluteus raegan muscle and comparison to the right which likely represents a small intramuscular hematoma. No fractures within the visualized osseous structures. The lung bases are clear. No retroperitoneal hematoma. The unenhanced liver, spleen, adrenal glands, and pancreas are unremarkable. Subtle hyperdensity layering within the gallbladder may represent small stones. Normal left kidney. There are 3 stones within the right kidney with the largest measuring 1 cm. No ureteral stones. No hydronephrosis. The bladder, uterus, and adnexa are unremarkable. No retroperitoneal lymphadenopathy. Suboptimal evaluation for bowel pathology due to the lack of intravenous and oral contrast. However, no evidence for bowel obstruction. Multiple colonic diverticula. There is minimal inflammatory change adjacent to a single diverticulum within the distal descending colon best seen on image 268. This is consistent with a developing acute diverticulitis. No perforation or abscess. Normal appendix. IMPRESSION: 1. There is a 16 x 13 x 3 cm subcutaneous hematoma within the left lower flank/gluteal region. There is surrounding fat stranding consistent with additional subcutaneous contusion. 2. Mild asymmetric enlargement of the left gluteus raegan muscle in comparison to the right which likely represents a small intramuscular hematoma. 3. No fractures within the visualized osseous structures. 4. Developing acute diverticulitis at the descending colon. No perforation or abscess identified. 5. Right-sided nephrolithiasis. No hydronephrosis. Assessment & Plan 52 year-old female who sustained accidental fall yesterday onto her buttocks with subsequent episodes of dizziness and near syncope and syncopal episodes. Syncopal episode with asystole in the ER s/p CPR. CT scan showing large hematoma of the left buttocks and incidental developing acute diverticulitis of the descending colon however no abscess or free air. Presented with leukocytosis of 26K with resolution to 9K today. Lactic acidosis of 2.8 on admission resolution today at 1.1. Dx: 1. Syncope 2. Acute uncomplicated diverticulitis 3. Large left gluteal hematoma s/p fall Plan: In regards to hematoma, no acute surgical intervention. Conservative management with pain control, ice packs, and close monitoring. Monitor H&H for continued bleeding. avoid any anticoagulation, SCDs for DVT prophylaxis. As for acute diverticulitis would continue IV Zosyn for now. If wbc normal tomorrow, no abdominal pain, may switch to oral Cipro/Flagyl to complete 7 day course of antibiotics. Continue current medical management May have clear liquids from surgical standpoint but cardiology wanted patient kept NPO will follow DR. Hernandez has seen and examined patient, agrees with above
[2017-09-24] MEDS ORDERED: ACETAMINOPHEN IV 1,000 MG in EMPTY BAG 0 ML IV STA (13:06)
[2017-09-24] MEDS ORDERED: ACETAMINOPHEN IV 1000MG/100ML IV ONE (13:15)
--- NOTE | 2017-09-24 14:24 | DIAGNOSTIC IMAGING REPORT ---
BILATERAL CAROTID DOPPLER STUDY HISTORY: syncope workup COMPARISON: None. TECHNIQUE: Real-time, grayscale, and color Doppler sonography of the carotid arteries was performed. Imaging reviewed in the transverse and longitudinal planes. All measurements were calculated based on NASCET criteria. FINDINGS: Antegrade flow is seen in the bilateral vertebral arteries. The brachial pressures are hemodynamically similar. The peak systolic velocity within the right ECA was 148 cm/s and the left ECA was 155 cm/s. The peak systolic velocity within the right ICA is 103 cm/s. The right systolic ratio is 1.5. The peak systolic velocity within the left ICA is 100 cm/s. The left systolic ratio is 1.3. IMPRESSION: 1. No hemodynamically significant stenosis seen within the bilateral common or internal carotid arteries. 2. Mild narrowing of the bilateral external carotid arteries based on velocity criteria. Electronically signed by: Andrés Bonds M.D. 09/24/2017 2:23 PM Dictated Date/Time: 09/24/2017 2:20 PM
--- NOTE | 2017-09-24 15:32 | ECHOCARDIOGRAM REPORT ---
*NOTICE TO RECEIVING LIBERTARIAN AGENCY This information is strictly Confidential and protected under [place] law. [place] law prohibits you from making any further disclosure of this information unless further disclosure is expressly permitted by the written consent of the person to whom it pertains or is authorized by law. A general authorization for the release of medical or other information is not sufficient for this purpose. Hospital accepts no responsibility if the information is made available to any other person, INCLUDING THE PATIENT. Interpretation Summary * Name: BECCA HERNÁNDEZ Study Date: 09/24/2017 07:14 AM BP: 111/62 mmHg * Patient Location: C.2T\S\E216\S\1 HR: 88 * : 1965 (M/d/yyyy) Gender: Female Height: 69 in * Age: 52 yrs Ethnicity: CA Weight: 232 lb * Ordering Physician: Gordon Sheikh * Referring Physician: Self, Referred * Performed By: Manju Stanley RCS * * Reason For Study: SYNCOPE * BSA: 2.2 m2 * The study was technically adequate. * -- Conclusions -- * No regional wall motion abnormalities noted. * The LV Ejection Fraction = 65-70%. * The right ventricle is normal in size and function. * Doppler findings do not suggest pulmonary hypertension. * There is no significant valvular heart disease. Procedure Details * A complete two-dimensional transthoracic echocardiogram was performed (2D, M-mode, Doppler and color flow Doppler). Left Ventricle * The left ventricle is normal in size. * There is mild concentric left ventricular hypertrophy. * Left ventricular systolic function is normal. * Ejection Fraction = 65-70%. * The left ventricular wall motion is normal. * No regional wall motion abnormalities noted. Right Ventricle * The right ventricle is normal in size and function. Atria * The left atrial size is normal. * Right atrial size is normal. * There is no evidence of atrial septal defect, but resolution does not allow assessment for a patent foramen ovale. Mitral Valve * There is mild mitral annular calcification. * There is no mitral valve stenosis. * Significant mitral regurgitation is absent. Tricuspid Valve * The tricuspid valve is normal. * There is no tricuspid stenosis. * Significant tricuspid regurgitation is absent. * Doppler findings do not suggest pulmonary hypertension. Aortic Valve * The aortic valve is trileaflet. * Aortic stenosis is absent. * There is no significant aortic regurgitation. Pulmonic Valve * The pulmonary valve is not well seen, but the Doppler examination is normal without significant regurgitation or stenosis. Great Vessels * The aortic root and proximal ascending aorta are normal sized. Pericardium/Pleural * There is no pericardial effusion. Great Vessels * Normal inferior vena cava diameter and respiratory variation suggests normal central venous pressure. Left Ventricular Diastolic Function * Grade I diastolic dysfunction, (abnormal relaxation pattern). MMode 2D Measurements and Calculations IVSd 1.3 cm IVSs 1.5 cm LVIDd 4.6 cm LVIDs 3.2 cm LVPWd 1.2 cm LVPWs 1.3 cm IVS/LVPW 1.1 FS 30.4 % EDV(Teich) 96.5 ml ESV(Teich) 40.6 ml EF(Teich) 57.9 % EDV(cubed) 96.3 ml ESV(cubed) 32.4 ml EF(cubed) 66.3 % % IVS thick 20.4 % % LVPW thick 11.6 % LV mass(C)d 214.1 grams LV mass(C)dI 97.3 grams/m\S\2 LV mass(C)s 160.0 grams LV mass(C)sI 72.7 grams/m\S\2 SV(Teich) 55.9 ml SI(Teich) 25.4 ml/m\S\2 SV(cubed) 63.9 ml SI(cubed) 29.0 ml/m\S\2 Ao root diam 2.8 cm Ao root area 6.1 cm\S\2 ACS 2.0 cm LA dimension 3.6 cm LA/Ao 1.3 LVOT diam 2.0 cm LVOT area 3.1 cm\S\2 LVAd ap4 33.0 cm\S\2 LVLd ap4 8.5 cm EDV(MOD-sp4) 106.9 ml EDV(sp4-el) 109.3 ml LVAs ap4 22.3 cm\S\2 LVLs ap4 7.7 cm ESV(MOD-sp4) 52.7 ml ESV(sp4-el) 54.8 ml EF(MOD-sp4) 50.7 % EF(sp4-el) 49.9 % LVAd ap2 31.9 cm\S\2 LVLd ap2 8.0 cm EDV(MOD-sp2) 102.8 ml EDV(sp2-el) 107.6 ml LVAs ap2 22.0 cm\S\2 LVLs ap2 6.9 cm ESV(MOD-sp2) 56.9 ml ESV(sp2-el) 59.6 ml EF(MOD-sp2) 44.7 % EF(sp2-el) 44.6 % LVLd %diff -5.29 % EDV(MOD-bp) 106.6 ml LVLs %diff -11.58 % ESV(MOD-bp) 56.4 ml EF(MOD-bp) 47.1 % SV(MOD-sp4) 54.2 ml SI(MOD-sp4) 24.6 ml/m\S\2 SV(MOD-sp2) 45.9 ml SI(MOD-sp2) 20.9 ml/m\S\2 SV(MOD-bp) 50.2 ml SI(MOD-bp) 22.8 ml/m\S\2 SV(sp4-el) 54.5 ml SI(sp4-el) 24.8 ml/m\S\2 SV(sp2-el) 47.9 ml SI(sp2-el) 21.8 ml/m\S\2 Doppler Measurements and Calculations MV E max laura 96.0 cm/sec MV A max laura 89.5 cm/sec MV E/A 1.1 MV P1/2t max laura 126.0 cm/sec MV P1/2t 59.5 msec MVA(P1/2t) 3.7 cm\S\2 MV dec slope 619.8 cm/sec\S\2 MV dec time 0.22 sec Ao V2 max 153.6 cm/sec Ao max PG 9.4 mmHg Ao max PG (full) 5.1 mmHg TYLER(V,A) 2.1 cm\S\2 TYLER(V,D) 2.1 cm\S\2 LV V1 max PG 4.3 mmHg LV V1 max 103.9 cm/sec PA V2 max 92.3 cm/sec PA max PG 3.4 mmHg
--- NOTE | 2017-09-24 15:35 | Cardiology Consultation ---
Cardiology Consultation Date of Consultation: Sep 24, 2017. Requesting Physician: Dr. Pérez Reason for Consultation: Syncope Pt evaluation today including: conversation w/ patient, physical exam, lab review, review of studies, conversation w/ aviation consultant, review of inpatient medication list History of Present Illness This is a very pleasant 52-year-old woman who has a history of recent palpitations and syncope when she was young, and more recently occasional lightheaded spells for 1 or 2 seconds, often while driving, and then had a fall yesterday. It has been raining and she was at her father's cabin when she slipped and landed on her left buttock (she has a significant bruise there). She specifically denies any kind of lightheadedness, dizziness or presyncope leading to the fall. It sounds as though immediately afterward she did have periods of lightheadedness and presyncope, and shortly after had several episodes of quite severe lightheadedness and dizziness and at least one episode of witnessed syncope prompting her to come into the emergency room. After coming to the hospital while standing up getting orthostatic blood pressure signs she had severe bradycardia and asystole resulting in syncope. Sinus arrest of at least 7 seconds is documented, associated with severe sinus bradycardia and secondary pauses. There did not appear to be heart block but that is inconclusive with severe sinus bradycardia. This seemed to reproduce her symptoms. Interestingly until she had a fall and injury she does not recall having severe episodes such as this, although did have the less severe episodes as described. She is actually up here from [place] caring for her father who had a severe illness with anaplasmosis. She is accompanied by her sister who also came up from [place]. Past Medical/Surgical History (1) Arrhythmia (2) Pre-diabetes Family History FHx: cancer FHx: diabetes mellitus FHx: hypertension FHx: lung cancer FHx: stroke Social History Smoking Status: Never Smoker History of Alcohol Use: Yes (4oz of vodka 2 days/week) Review of Systems Constitutional: No fever, No weight loss, No weakness Respiratory: No cough, No wheezing, No shortness of breath, No dyspnea on exertion Cardiac: + see HPI, + palpitations, + problem reported (Syncope), No chest pain , No orthopnea, No PND, No edema Abdomen: No pain, No nausea, No vomiting, No diarrhea, No GI bleeding Female : No problem reported Neurologic: No paralysis, No weakness, No numbness/tingling, No balance problems Heme: No abnormal bleeding/bruising, No clotting problems Endo: No fatigue Skin: No problem reported L buttock pain All Other Systems: Reviewed and Negative Allergies Coded Allergies: No Known Allergies (Unverified , 09/23/17) Medications Current Inpatient Medications Medications (Trade) Dose Ordered Sig/Kari Route Start Time Stop Time Status Last Admin Dose Admin Sodium Chloride 1,000 ml @ 100 mls/hr Q10H IV 09/23/17 20:28 10/23/17 20:27 09/24/17 06:28 100 MLS/HR Acetaminophen (Tylenol Tab) 650 mg Q4H PRN PO 09/23/17 20:30 10/23/17 20:29 Al Hydrox/Mg Hydrox/Simethicone (Maalox Max Susp) 15 ml Q4H PRN PO 09/23/17 20:30 10/23/17 20:29 Ondansetron HCl (Zofran Inj) 4 mg Q6H PRN IV 09/23/17 20:30 10/23/17 20:29 09/24/17 10:19 4 MG Nitroglycerin (Nitrostat Tab) 0.4 mg UD PRN SL 09/23/17 20:30 10/23/17 20:29 Polyethylene (Miralax Powder Packet) 17 gm DAILY PRN PO 09/23/17 20:30 10/23/17 20:29 Insulin Aspart (novoLOG ASPART) SLIDING SCALE G... ACHS SC 09/23/17 22:00 10/23/17 21:59 Glucose (Glucose 40% Gel) 15-30 GRAMS 15 GRAMS... UD PRN PO 09/23/17 22:00 10/23/17 21:59 Glucose (Glucose Chew Tab) 4-8 Tablets 4 Tabl... UD PRN PO 09/23/17 22:00 10/23/17 21:59 Dextrose (Dextrose 50% 50ML Syringe) 25-50ML 25ML FOR ... UD PRN IV 09/23/17 22:00 10/23/17 21:59 Glucagon (Glucagon Inj) 1 mg UD PRN IM 09/23/17 22:00 10/23/17 21:59 Carbohydrates (Carbohydrates For Hypoglycemia) 15-30 GRAMS 15 grams if BSG 54-69... UD PRN PO 09/23/17 22:00 10/23/17 21:59 Piperacillin Sod/ Tazobactam Sod 3.375 gm/Dextrose 115 ml @ 28.75 mls/ hr Q8H IV 09/24/17 04:00 10/04/17 03:59 09/24/17 12:03 28.75 MLS/HR Miscellaneous Information (Consult) 1 ea UD PRN N/A 09/23/17 22:30 10/23/17 22:29 Sodium Chloride ([place] Nasal [place]) 1 sprays PRN PRN NA 09/24/17 04:15 10/24/17 04:14 Fluticasone Propionate (Flonase Nasal [place]) 1 sprays DAILY NA 09/24/17 04:15 10/24/17 04:14 09/24/17 07:54 1 SPRAYS Physical Exam Vital Signs Past 12 Hours Date Time Temp Pulse Resp B/P (MAP) Pulse Ox O2 Delivery O2 Flow Rate FiO2 09/24/17 15:05 37.0 86 20 129/76 (93) 98 Room Air 09/24/17 10:50 36.9 91 20 128/77 (94) 100 Room Air 09/24/17 08:00 Room Air 09/24/17 06:41 37.1 84 16 111/69 (83) 98 Room Air Constitutional: General Apperance: overweight Level of Distress: NAD Psychiatric: Mental Status: active & alert Head: normocephalic Eyes: EOM: EOMI ENMT: normal ENT inspection, hearing grossly normal Neck: supple, no masses Lungs: Respiratory effort: no dyspnea, good air movement Auscultation: breath sounds normal, no wheezing Cardiovascular: Heart Auscultation: RRR, no murmurs, no rubs, no gallops Peripheral Pulses: Bruits: none appreciated Abdomen: Bowel Sounds: normal Inspection & Palpation: soft, no tenderness, guarding & rebound, no masses Musculoskeletal: normal strength (5/5 throughout) Extremities: no edema Neurologic: Cranial Nerves: grossly intact Sensation: grossly intact L buttock bruise Data Laboratory Results: Last 24 Hours Test 09/23/17 18:28 09/23/17 22:04 09/23/17 22:32 09/24/17 00:28 White Blood Count 26.93 K/uL Red Blood Count 4.45 M/uL Hemoglobin 13.3 g/dL 12.7 g/dL Hematocrit 40.3 % 38.0 % Mean Corpuscular Volume 90.6 fL Mean Corpuscular Hemoglobin 29.9 pg Mean Corpuscular Hemoglobin Concent 33.0 g/dl Platelet Count 304 K/uL Mean Platelet Volume 10.3 fL Neutrophils (%) (Auto) 85.4 % Lymphocytes (%) (Auto) 6.2 % Monocytes (%) (Auto) 7.9 % Eosinophils (%) (Auto) 0.1 % Basophils (%) (Auto) 0.1 % Neutrophils # (Auto) 22.96 K/uL Lymphocytes # (Auto) 1.68 K/uL Monocytes # (Auto) 2.14 K/uL Eosinophils # (Auto) 0.03 K/uL Basophils # (Auto) 0.03 K/uL RDW Standard Deviation 43.6 fL RDW Coefficient of Variation 13.2 % Immature Granulocyte % (Auto) 0.3 % Immature Granulocyte # (Auto) 0.09 K/uL Prothrombin Time 10.7 SECONDS Prothromb Time International Ratio 1.0 Activated Partial Thromboplast Time 22.9 SECONDS Partial Thromboplastin Ratio 0.9 Sodium Level 136 mmol/L Potassium Level 3.9 mmol/L Chloride Level 104 mmol/L Carbon Dioxide Level 24 mmol/L Anion Gap 8.0 mmol/L Blood Urea Nitrogen 28 mg/dl Creatinine 1.11 mg/dl Est Creatinine Clear Calc Drug Dose 75.7 ml/min Estimated GFR () 65.7 Estimated GFR (Non- 56.7 BUN/Creatinine Ratio 25.2 Random Glucose 179 mg/dl Calcium Level 8.7 mg/dl Phosphorus Level 1.3 mg/dl Magnesium Level 2.1 mg/dl Total Bilirubin 0.3 mg/dl Direct Bilirubin < 0.1 mg/dl Aspartate Amino Transf (AST/SGOT) 14 U/L Alanine Aminotransferase (ALT/SGPT) 27 U/L Alkaline Phosphatase 52 U/L Troponin I < 0.015 ng/ml Total Protein 7.4 gm/dl Albumin 3.9 gm/dl Thyroid Stimulating Hormone (TSH) 0.734 uIu/ml Lyme Disease IgM Antibody NEG Hepatitis C Antibody Screen NEG Bedside Glucose 140 mg/dl Lactic Acid Level 2.8 mmol/L Test 09/24/17 01:00 09/24/17 04:21 09/24/17 08:05 09/24/17 10:27 Urine Color YELLOW Urine Appearance CLEAR Urine pH 5.0 Urine Specific [place] 1.032 Urine Protein NEG Urine Glucose (UA) 3+ Urine Ketones 1+ Urine Occult Blood NEG Urine Nitrite NEG Urine Bilirubin NEG Urine Urobilinogen NEG Urine Leukocyte Esterase NEG White Blood Count 9.47 K/uL Red Blood Count 3.67 M/uL Hemoglobin 10.9 g/dL 11.3 g/dL Hematocrit 33.2 % 34.2 % Mean Corpuscular Volume 90.5 fL Mean Corpuscular Hemoglobin 29.7 pg Mean Corpuscular Hemoglobin Concent 32.8 g/dl Platelet Count 256 K/uL Mean Platelet Volume 10.1 fL Neutrophils (%) (Auto) 63.2 % Lymphocytes (%) (Auto) 21.5 % Monocytes (%) (Auto) 14.6 % Eosinophils (%) (Auto) 0.4 % Basophils (%) (Auto) 0.2 % Neutrophils # (Auto) 5.98 K/uL Lymphocytes # (Auto) 2.04 K/uL Monocytes # (Auto) 1.38 K/uL Eosinophils # (Auto) 0.04 K/uL Basophils # (Auto) 0.02 K/uL RDW Standard Deviation 43.5 fL RDW Coefficient of Variation 13.2 % Immature Granulocyte % (Auto) 0.1 % Immature Granulocyte # (Auto) 0.01 K/uL Sodium Level 139 mmol/L Potassium Level 4.0 mmol/L Chloride Level 109 mmol/L Carbon Dioxide Level 23 mmol/L Anion Gap 7.0 mmol/L Blood Urea Nitrogen 19 mg/dl Creatinine 0.83 mg/dl Est Creatinine Clear Calc Drug Dose 100.7 ml/min Estimated GFR () 93.3 Estimated GFR (Non- 80.5 BUN/Creatinine Ratio 22.8 Random Glucose 101 mg/dl Estimated Average Glucose 134 mg/dl Hemoglobin A1c 6.3 % Lactic Acid Level 1.1 mmol/L Calcium Level 7.4 mg/dl Phosphorus Level 3.4 mg/dl Magnesium Level 2.1 mg/dl Total Creatine Kinase 142 U/L 145 U/L Creatine Kinase MB 1.5 ng/ml 1.4 ng/ml Creatine Kinase MB Ratio 1.1 1.0 Troponin I < 0.015 ng/ml < 0.015 ng/ml Bedside Glucose 106 mg/dl Test 09/24/17 11:22 Bedside Glucose 117 mg/dl Imaging: EKG: Telemetry reviewed: Assessment & Plan 1. Syncope: Based on the recurrence of these symptoms and the documentation of severe bradycardia and atrial asystole her syncopal episodes appeared to be due to sinus bradycardia and arrest. Why she is having so much difficulty with it now is unclear, perhaps it is in part vagally mediated now with her left buttock injury. 2. Sinus arrest: She did have prior presyncopal events of unknown etiology and this episode was profound enough I do not think we can ignore it. I think she should have a pacemaker, I discussed the indications, procedure, risks and alternatives with her and her sister and they understand and she agrees to proceed. I also reviewed the risks of conscious sedation with her. Consent obtained for the pacemaker implantation as well as conscious sedation. We will plan on pacemaker implantation tomorrow. 3. Palpitations: She has long-standing palpitations, I believe these have been identified in the past to be premature beats (based on her history). I do not believe these have been associated with her presyncopal episodes. She is not any specific treatment for them and they have not been terribly problematic. Thank you for allowing me to participate in her care.
--- NOTE | 2017-09-24 16:22 | Progress Note ---
Progress Note Date of Service Sep 24, 2017. Progress Note Subjective: Today, patient denies symptoms of lightheadedness. Denies aura of her "eyes diming" as she has experienced on day of hospital presentation on 09/23/17. denies chets pain or shortness of breath. Patient's hear rate generally 80 beats per minute. Patient is NPO after midnight for possible placement of pacemaker as recommended by [facility] consultation. Patient aware of plan Physical Exam General: obese, not in distress. HEENT: EOMI NECK: No JVD or neck masses, no carotid bruits. CARDIOVASCULAR: S1, S2 heard, regular rate and rhythm, no murmur, no gallop. RESPIRATORY SYSTEM: Clear to auscultation bilaterally. No wheezing, no crackles. ABDOMEN: Soft, bowel sounds present. Nontender. No distention. CENTRAL NERVOUS SYSTEM: Cranial nerves II through XII grossly intact, nonfocal. EXTREMITIES: No edema, no erythema. ASSESSMENT AND PLAN: This 52-year-old female presents with syncopal episodes post mechanical fall on the porch. After that she had 3 episodes of syncopal episodes, one of which was in the ER. As per ED nursing notes "Attempted to complete orthostatic vital signs. while standing patient became dizzy and stated "I dont feel well" patient sat on the bed and continued to complain she didnt feel well. patient became bradycardic, diaphoretic and pale. asked another nurse to help and get me Dr Winchester. attempted sternal rub, patient did not respond. patient asystolye. compressions started. patient woke up and started to breath. defib pads placed on patient" Recurrent syncope -CT head and carotid dopplers are generally normal -has been given IV fluids -cardiology service has evaluated the patient: "Based on the recurrence of these symptoms and the documentation of severe bradycardia and atrial asystole her syncopal episodes appeared to be due to sinus bradycardia and arrest." -NPO after midnight for pacemaker placement Left gluteal hematoma secondary to falling on buttock -evaluated by general surgery service: no acute surgical intervention. Conservative management with pain control, ice packs, and close monitoring. Monitor H&H for continued bleeding. avoid any anticoagulation. SCDs for DVT prophylaxis. Early diverticulitis on CT scan. -Started on IV Zosyn on admission -but no obvious abdominal of GI symptoms -Leukocytosis did improve -Continue IV Zosyn for now Electrolytes -Hypophosphatemia resolved after repletion Prediabetes, HbA1c 6.3 -on insulin sliding scale. Deep venous thrombosis prophylaxis, sequential compression devices for now
[2017-09-24] MEDS: ACETAMINOPHEN 325 MG TAB PO PRN (21:02)
[2017-09-25] VITALS (7 sets, daily range): BP systolic 109–144; BP diastolic 72–88; PULSE 70–90; TEMP 36.5–37.1; O2SAT 97–100
[2017-09-25] MEDS: ACETAMINOPHEN 325 MG TAB PO PRN ×3 (01:40→15:53)
[2017-09-25] MEDS: PIPERACILL/TAZOBAC IV 3.375 GM in DEXTROSE 5% 100ML 100 ML IV SCH ×3 (03:50→21:04)
[2017-09-25] MEDS ORDERED: CEFAZOLIN IV 2,000 MG in SYRINGE 0 ML IV SCH (06:00)
[2017-09-25] MEDS ORDERED: CEFAZOLIN SOD 2000MG/15 ML IV PUSH IV SCH (06:00)
[2017-09-25 06:13] LABS: BASO % 0.2 %; BASO ABS # 0.02 K/uL (0-0.2); EOS % 1.1 %; HEMATOCRIT 32.4 % (37-47); HEMOGLOBIN 10.5 g/dL (12.0-16.0); IG# 0.01 K/uL (0.00-0.02); LYMPH % 30.6 %; LYMPH ABS # 2.77 K/uL (1.2-3.4); MEAN CELL VOLUME 91.3 fL (80-100); MEAN CORPUSCULAR HEMOGLOBIN 29.6 pg (25-34); MEAN CORPUSCULAR HGB CONC 32.4 g/dl (32-36); MONO % 12.5 %; MONO ABS # 1.13 K/uL (0.11-0.59); NEUT % 55.5 %; NEUT ABS # 5.01 K/uL (1.4-6.5); PLATELET COUNT 266 K/uL (130-400); RED CELL DISTRIBUTION WIDTH CV 13.5 % (11.5-14.5); RED CELL DISTRIBUTION WIDTH SD 45.1 fL (36.4-46.3); WHITE BLOOD COUNT 9.04 K/uL (4.8-10.8)
[2017-09-25] MEDS: INSULIN ASPART 100 UNITS/ML 3 ML PEN SC SCH ×4 (07:00→21:00)
[2017-09-25 07:04] LABS: CALCIUM 8.1 mg/dl (8.5-10.1); CREATININE 0.87 mg/dl (0.60-1.20); PHOSPHORUS 2.6 mg/dl (2.5-4.9); POTASSIUM 3.7 mmol/L (3.5-5.1)
[2017-09-25] MEDS ORDERED: LACTATED RINGER'S 1000ML 1,000 ML IV ONE (08:00)
[2017-09-25] MEDS: FLUTICASONE PROPIONATE NA SPR 16 GM BTL SCH (08:03)
[2017-09-25] MEDS ORDERED: BACITRACIN 50000 UNIT VIAL ONE (08:07)
[2017-09-25] MEDS ORDERED: LIDOCAINE HCL 1% 20 ML VIAL ONE (08:07)
[2017-09-25] MEDS ORDERED: BACITRACIN OINT 0.9 GM PKT ONE (08:07)
--- NOTE | 2017-09-25 08:35 | Cardiology Follow-Up ---
Subjective Date of Service: Sep 25, 2017. Pt evaluation today including: conversation w/ patient, physical exam, lab review, review of studies, review of inpatient medication list History of Present Illness This is a very pleasant 52-year-old woman who has a history of recent palpitations and syncope when she was young, and more recently occasional lightheaded spells for 1 or 2 seconds, often while driving, and then had a fall yesterday. It has been raining and she was at her [place]'s cabin when she slipped and landed on her left buttock (she has a significant bruise there). She specifically denies any kind of lightheadedness, dizziness or presyncope leading to the fall. It sounds as though immediately afterward she did have periods of lightheadedness and presyncope, and shortly after had several episodes of quite severe lightheadedness and dizziness and at least one episode of witnessed syncope prompting her to come into the emergency room. After coming to the hospital while standing up getting orthostatic blood pressure signs she had severe bradycardia and asystole resulting in syncope. Sinus arrest of at least 7 seconds is documented, associated with severe sinus bradycardia and secondary pauses. There did not appear to be heart block but that is inconclusive with severe sinus bradycardia. This seemed to reproduce her symptoms. Interestingly until she had a fall and injury she does not recall having severe episodes such as this, although did have the less severe episodes as described. She is actually up here from [place] caring for her father who had a severe illness with anaplasmosis. She is accompanied by her sister who also came up from [place]. She has had no further cardiovascular symptoms since yesterday, still has the left buttock discomfort and sinus discomfort on her right face. She is ready for her pacemaker today. Social History Smoking Status: Never Smoker History of Alcohol Use: Yes (4oz of vodka 2 days/week) Review of Systems Respiratory: No cough, No wheezing, No shortness of breath, No dyspnea on exertion Cardiac: + see HPI, + palpitations, + problem reported (Syncope), No chest pain , No orthopnea, No PND, No edema L buttock pain Medications No cardiovascular Objective Vital Signs Past 12 Hours Date Time Temp Pulse Resp B/P (MAP) Pulse Ox O2 Delivery O2 Flow Rate FiO2 09/25/17 06:54 37.0 70 18 109/72 (84) 100 Room Air 09/25/17 03:31 36.7 80 17 121/73 (89) 98 Room Air 09/24/17 23:22 36.9 81 17 114/66 (82) 98 Room Air Last Recorded Weight-Kilograms: 106.000 Physical Exam Constitutional: General Apperance: overweight Level of Distress: NAD Lungs: Respiratory effort: no dyspnea, good air movement Auscultation: breath sounds normal, no wheezing Cardiovascular: Heart Auscultation: RRR, no murmurs, no rubs, no gallops Peripheral Pulses: Bruits: none appreciated Extremities: no edema L buttock bruise Data Laboratory Results: Last 24 Hours Test 09/24/17 10:27 09/24/17 11:22 09/24/17 16:22 09/24/17 20:29 Hemoglobin 11.3 g/dL Hematocrit 34.2 % Total Creatine Kinase 145 U/L Creatine Kinase MB 1.4 ng/ml Creatine Kinase MB Ratio 1.0 Troponin I < 0.015 ng/ml Bedside Glucose 117 mg/dl 118 mg/dl 134 mg/dl Test 09/25/17 05:31 09/25/17 07:39 White Blood Count 9.04 K/uL Red Blood Count 3.55 M/uL Hemoglobin 10.5 g/dL Hematocrit 32.4 % Mean Corpuscular Volume 91.3 fL Mean Corpuscular Hemoglobin 29.6 pg Mean Corpuscular Hemoglobin Concent 32.4 g/dl Platelet Count 266 K/uL Mean Platelet Volume 10.0 fL Neutrophils (%) (Auto) 55.5 % Lymphocytes (%) (Auto) 30.6 % Monocytes (%) (Auto) 12.5 % Eosinophils (%) (Auto) 1.1 % Basophils (%) (Auto) 0.2 % Neutrophils # (Auto) 5.01 K/uL Lymphocytes # (Auto) 2.77 K/uL Monocytes # (Auto) 1.13 K/uL Eosinophils # (Auto) 0.10 K/uL Basophils # (Auto) 0.02 K/uL RDW Standard Deviation 45.1 fL RDW Coefficient of Variation 13.5 % Immature Granulocyte % (Auto) 0.1 % Immature Granulocyte # (Auto) 0.01 K/uL Sodium Level 140 mmol/L Potassium Level 3.7 mmol/L Chloride Level 107 mmol/L Carbon Dioxide Level 27 mmol/L Anion Gap 6.0 mmol/L Blood Urea Nitrogen 10 mg/dl Creatinine 0.87 mg/dl Est Creatinine Clear Calc Drug Dose 97.0 ml/min Estimated GFR () 88.2 Estimated GFR (Non- 76.1 BUN/Creatinine Ratio 10.9 Random Glucose 107 mg/dl Calcium Level 8.1 mg/dl Phosphorus Level 2.6 mg/dl Magnesium Level 2.2 mg/dl Bedside Glucose 128 mg/dl Telemetry reviewed: Sinus rhythm, no significant arrhythmia since yesterday Assessment and Plan 1. Syncope: Based on the recurrence of these symptoms and the documentation of severe bradycardia and atrial asystole her syncopal episodes appeared to be due to sinus bradycardia and arrest. Why she is having so much difficulty with it now is unclear, perhaps it is in part vagally mediated now with her left buttock injury. With her prior presyncopal events, especially while driving, without injury this is worrisome. 2. Sinus arrest: She did have prior presyncopal events of unknown etiology and this episode was profound enough I do not think we can ignore it. Even if this is in part vaguely mediated I think she should have a pacemaker, if she has a vasodepressor component she may still have symptoms and I explained that to her. I discussed the indications, procedure, risks and alternatives with her and her sister yesterday and they understood, I reviewed it today with her and she agrees to proceed. I also reviewed the risks of conscious sedation with her yesterday. Consent had been obtained for the pacemaker implantation as well as conscious sedation. We will plan on pacemaker implantation this morning. 3. Palpitations: She has long-standing palpitations, I believe these have been identified in the past to be premature beats (based on her history). I do not believe these have been associated with her presyncopal episodes. She is not any specific treatment for them and they have not been terribly problematic. Thank you for allowing me to participate in her care.
--- NOTE | 2017-09-25 08:37 | Pre Sedation Assessment ---
Pre Sedation Assessment General Date of Sedation: Sep 25, 2017. Vital Signs Past 12 Hours Date Time Temp Pulse Resp B/P (MAP) Pulse Ox O2 Delivery O2 Flow Rate FiO2 09/25/17 06:54 37.0 70 18 109/72 (84) 100 Room Air 09/25/17 03:31 36.7 80 17 121/73 (89) 98 Room Air 09/24/17 23:22 36.9 81 17 114/66 (82) 98 Room Air Review Cardiovascular: regular rate, rhythm, no edema, no gallop, no JVD, no murmur, normal peripheral pulses Lungs: chest non-tender, lungs clear, normal breath sounds, no respiratory distress, no accessory muscle use Pre-Sedation Airway Assessment Smoking Status: Never Smoker Hx of Sleep Apnea: No Hx of difficult intubation: No Short Thick Neck: No Thyro-mental Distance: > 3 Finger Breadths Mallampati Classification: Class II ASA Classification: Class II NPO Status Date of Last Intake of Fluids: Sep 25, 2017 Time of Last Intake of Fluids: 0130 Date of Last Intake of Solids: Sep 24, 2017 Procedure Planning Contraindications for Sedation: None Current Medications Reviewed: Yes Notes The planned sedation has been discussed with the patient. Informed Consent was obtained. I have identified the patient, determined the appropriateness of sedation and have assessed the patient immediately prior to the procedure. All medicine(s) and interventions are by my order.
[2017-09-25] MEDS ORDERED: MIDAZOLAM HCL 5 MG/ML 1 ML VIAL ONE ×2 (09:10→09:29)
[2017-09-25] MEDS ORDERED: FENTANYL CITRATE INJ 50 MCG/1 ML 2 ML VIAL ONE ×3 (09:10→10:08)
--- NOTE | 2017-09-25 10:24 | [facility] Operative Report ---
Operative Report Operative Date Sep 25, 2017. Pre-Operative Diagnosis Sinus arrest and syncope Post-Operative Diagnosis Same Procedure(s) Performed Dual-chamber pacemaker implantation Surgeon Dr. Briceño Crop [employer] Grain Farmer Surgeon(s) None Estimated Blood Loss 20 cc Findings Good lead position, good measurements Specimens None Anesthesia Local with sedation Complication(s) None Disposition PCU Description of Procedure After obtaining informed consent for the procedure, the patient was brought to the laboratory and prepped and draped in the standard sterile manner. The left prepectoral region was anesthetized with 1% lidocaine local anesthetic and left axillary venipuncture was performed by percutaneous technique and a guidewire placed through the left subclavian vein into the superior vena cava. The area was further infiltrated with 1% lidocaine local anesthetic and a 5 cm incision was made parallel to the left clavicle and 2 cm below it and carried down to the anterior pectoralis fascia. A pacemaker pocket was formed by blunt dissection anterior to the pectoralis fascia and a bacitracin-soaked sponge (50, 000 units in 50 cc normal saline solution) was placed in the pocket. An 8 [place] Med[employer] lead introducer was placed over the guidewire into the left subclavian vein, the dilator and guidewire were removed and a bipolar active fixation steroid tipped ventricular lead was advanced through the introducer into the superior vena cava. A guidewire was placed through the introducer and the introducer was stripped from the lead and guidewire. Another 8 [place] Med[employer] lead introducer was placed over the guidewire into the left subclavian vein, the dilator and guidewire were removed and a bipolar active fixation steroid tipped atrial lead was advanced through the introducer into the superior vena cava. A guidewire was placed back through the introducer and the introducer was stripped from the lead and guidewire. Using a curved stylette the ventricular lead was advanced through the right ventricular outflow tract into the pulmonary artery and then using a straight stylette was positioned in the right ventricular apex. The screw was extended fixing the lead in position. Pacing and sensing thresholds were evaluated in bipolar configuration and are recorded on the implant data sheet. Using a curved stylette the atrial lead was positioned in the region of the atrial appendage and the screw extended fixing the lead in position. Pacing and sensing thresholds were evaluated in bipolar configuration and are recorded on the implant data sheet. Once the leads were in position they were attached to the anterior pectoralis fascia using 2 sutures of 2-0 silk around each lead collar. The bacitracin- soaked sponge was removed from the pocket, hemostasis was obtained, the pacemaker was attached to the leads and placed in the pocket with the leads coiled beneath it. The incision was closed with a running double subcutaneous closure of 3-0 Vicryl absorbable suture, followed by running subcuticular skin closure of 4-0 Vicryl absorbable suture. Bacitracin ointment was placed on the incision and a pressure dressing applied. I attest to the content of the Intraoperative Record and any orders documented therein. Any exceptions are noted below.
--- NOTE | 2017-09-25 10:25 | Post Sedation Assessment ---
Post Sedation Assessment General Date of Sedation Sep 25, 2017. Vital Signs: Vital Signs Past 12 Hours Date Time Temp Pulse Resp B/P (MAP) Pulse Ox O2 Delivery O2 Flow Rate FiO2 09/25/17 08:00 Room Air 09/25/17 06:54 37.0 70 18 109/72 (84) 100 Room Air 09/25/17 03:31 36.7 80 17 121/73 (89) 98 Room Air 09/24/17 23:22 36.9 81 17 114/66 (82) 98 Room Air Post Procedure Recovery Score Activity: (2) Moves 4 extremities * Respiration: (2) Deep breath/cough Circulation: (2) +/-20% PreAnes Value Consciousness: (2) Fully Awake Oxygen Saturation: (2) > 92% On Room Air Post Anesthesia Score: 10 Discharge Sedation Level of Care: Fast Track Phase II Post Sedation Plan On clinical assessment, the patient appears to have tolerated the sedation without complications. Patient is recovering as anticipated. Patient will continue to be monitored by nursing and may be discharged when sedation discharge criteria are met per below protocol. Upon Completions of procedure and additional 15 minutes continue every 5 minute vital signs and the P.A.R. score; then discharge to a Phase I or Fast Track to Phase II per the following guidelines: * Discharge Patient to appropriate Phase II area if PAR is 8 or greater or return to pre- procedure baseline. The post - procedure orders will be as directed. * If PAR score is less than 8 or not return to pre-procedure baseline then patient will follow Phase I monitoring till PAR is reached for Phase II. The Phase I may be done in procedure room or may call to secure a Phase I area. * If naloxone or flumazenil are used for reversal, hold in Phase I for an additional 60 -120 minutes before discharge to Phase II. Please call the Sedation Physician to re-evaluate and complete post-note for discharge to Phase II area. Do NOT discharge from procedure sedation or Phase 1 until post- sedation evaluation note is complete by procedure /sedation MD Sedation Discharge Instructions to be given to the patient at discharge to home.
[2017-09-25] MEDS ORDERED: ACETAMINOPHEN 325 MG TAB PO PRN (10:30)
[2017-09-25] MEDS ORDERED: KETOROLAC TROMETHAMINE 10 MG TAB PO PRN (10:30)
--- NOTE | 2017-09-25 11:27 | Cardiology Follow-Up ---
Subjective General Date of Service: Sep 25, 2017. Chief Complaint: SSS Pt evaluation today including: conversation w/ patient, physical exam, chart review, lab review, review of studies, review of inpatient medication list History of Present Illness Patient was evaluated post pacemaker employment this morning. She reports ongoing sinus headache since admission. Mild pacer incisional pain. No dizziness, syncope or near syncope. No palpitations. No chest pain or shortness of breath. Allergies Coded Allergies: No Known Allergies (Unverified , 09/23/17) Social History Smoking Status: Never Smoker Hx Alcohol Use - Type And Amou: Yes (4oz of vodka 2 days/week) Problem List Medical Problems: (1) Contusion of buttock Status: Acute (2) Fall Status: Acute (3) Hypophosphatemia Status: Acute (4) Syncope Status: Acute Review of Systems Respiratory: No cough, No wheezing, No shortness of breath, No dyspnea at rest , No hemoptysis Cardiac: No chest pain, No orthopnea, No PND, No edema, No palpitations Physical Exam Vital Signs Last Vital Signs Documentation Date Time Temp Pulse Resp B/P (MAP) Pulse Ox O2 Delivery O2 Flow Rate FiO2 09/25/17 10:55 36.8 81 18 126/80 (95) 99 Room Air 09/23/17 18:42 3.0 Physical Exam Constitutional: General Apperance: overweight Level of Distress: NAD Psychiatric: Mental Status: active & alert Head: normocephalic Eyes: EOM: EOMI ENMT: normal ENT inspection, hearing grossly normal Neck: supple, no masses Lungs: Respiratory effort: no dyspnea, good air movement Auscultation: breath sounds normal, no wheezing Cardiovascular: Heart Auscultation: RRR, no murmurs, no rubs, no gallops Peripheral Pulses: Bruits: none appreciated Abdomen: Bowel Sounds: normal Inspection & Palpation: soft, no tenderness, guarding & rebound, no masses Musculoskeletal: normal strength (5/5 throughout) Extremities: no edema Neurologic: Cranial Nerves: grossly intact Sensation: grossly intact Assessment and Plan Assessment and Plan ASSESSMENT and PLAN: 1. symptomatic bradycardia/SSS, with 4-5 episodes of syncope correlating with bradycardia/asystole in the ER. -patient underwent PPM this morning. Tolerated procedure. 2. Chest pressure, resolved. -normal echo -non ischemic EKG -cardiac enzymes x3 3. Elevated WBC, now improved no signs of infectious process blood cultures - prelim negative. Observation overnight. out of bed later today. Device interrogation in 1 week. Will arrange. Case discussed with Dr. Pérez. Will follow General CARDIOLOGY ATTENDING ADDENDUM: The patient was seen and personally examined. Agree with Mindi Serrato PA-C's findings and plans as documented above with additions noted as below. Patient reassessed, status post left infraclavicular [employer] permanent pacemaker. Patient tolerated procedure well. She notes residual soreness of her buttock hematoma, but is comfortable. She plans to be in [place] through November and will follow up with our device clinic. Laboratory Results Last 24 Hours Test 09/24/17 16:22 09/24/17 20:29 09/25/17 05:31 09/25/17 07:39 Bedside Glucose 118 mg/dl 134 mg/dl 128 mg/dl White Blood Count 9.04 K/uL Red Blood Count 3.55 M/uL Hemoglobin 10.5 g/dL Hematocrit 32.4 % Mean Corpuscular Volume 91.3 fL Mean Corpuscular Hemoglobin 29.6 pg Mean Corpuscular Hemoglobin Concent 32.4 g/dl Platelet Count 266 K/uL Mean Platelet Volume 10.0 fL Neutrophils (%) (Auto) 55.5 % Lymphocytes (%) (Auto) 30.6 % Monocytes (%) (Auto) 12.5 % Eosinophils (%) (Auto) 1.1 % Basophils (%) (Auto) 0.2 % Neutrophils # (Auto) 5.01 K/uL Lymphocytes # (Auto) 2.77 K/uL Monocytes # (Auto) 1.13 K/uL Eosinophils # (Auto) 0.10 K/uL Basophils # (Auto) 0.02 K/uL RDW Standard Deviation 45.1 fL RDW Coefficient of Variation 13.5 % Immature Granulocyte % (Auto) 0.1 % Immature Granulocyte # (Auto) 0.01 K/uL Sodium Level 140 mmol/L Potassium Level 3.7 mmol/L Chloride Level 107 mmol/L Carbon Dioxide Level 27 mmol/L Anion Gap 6.0 mmol/L Blood Urea Nitrogen 10 mg/dl Creatinine 0.87 mg/dl Est Creatinine Clear Calc Drug Dose 97.0 ml/min Estimated GFR () 88.2 Estimated GFR (Non- 76.1 BUN/Creatinine Ratio 10.9 Random Glucose 107 mg/dl Calcium Level 8.1 mg/dl Phosphorus Level 2.6 mg/dl Magnesium Level 2.2 mg/dl
[2017-09-25] MEDS: ONDANSETRON INJ 2 MG/ML 2 ML VIAL IV PRN (12:20)
--- NOTE | 2017-09-25 18:03 | Progress Note ---
Medicine Progress Note Date & Time of Visit: Sep 25, 2017 at 17:53. Subjective Pt was seen and examined Lying in bed with no distress Pt said that she having sinus pressure headache that seems to be chronic Denies any chest pain, palpitation, dizziness and SOB Objective Last 8 Hrs Date Time Temp Pulse Resp B/P (MAP) Pulse Ox O2 Delivery O2 Flow Rate FiO2 09/25/17 16:00 Room Air 09/25/17 15:06 36.5 74 18 125/76 (92) 100 Room Air 09/25/17 10:55 36.8 81 18 126/80 (95) 99 Room Air 09/25/17 10:40 37.0 81 18 125/88 (100) 97 Room Air 09/25/17 10:28 88 18 141/84 (103) 100 Room Air 09/25/17 10:23 74 18 130/84 (99) 100 Room Air 09/25/17 10:18 74 18 136/74 (94) 100 Room Air Physical Exam: General- No acute distress Head- atraumatic Eyes- PERRL, EOMI ENT- oropharynx clear Neck- supple, no JVD Lungs- clear to auscultation Heart- regular rhythm; no murmur Abdomen- normal bowel sounds, soft Extremities- no pretibial edema, Neuro- alert, oriented x 3; PERRL, EOMI; no facial palsy Skin- warm & dry Laboratory Results: Last 24 Hours Test 09/24/17 20:29 09/25/17 05:31 09/25/17 07:39 09/25/17 11:22 Bedside Glucose 134 mg/dl 128 mg/dl 132 mg/dl White Blood Count 9.04 K/uL Red Blood Count 3.55 M/uL Hemoglobin 10.5 g/dL Hematocrit 32.4 % Mean Corpuscular Volume 91.3 fL Mean Corpuscular Hemoglobin 29.6 pg Mean Corpuscular Hemoglobin Concent 32.4 g/dl Platelet Count 266 K/uL Mean Platelet Volume 10.0 fL Neutrophils (%) (Auto) 55.5 % Lymphocytes (%) (Auto) 30.6 % Monocytes (%) (Auto) 12.5 % Eosinophils (%) (Auto) 1.1 % Basophils (%) (Auto) 0.2 % Neutrophils # (Auto) 5.01 K/uL Lymphocytes # (Auto) 2.77 K/uL Monocytes # (Auto) 1.13 K/uL Eosinophils # (Auto) 0.10 K/uL Basophils # (Auto) 0.02 K/uL RDW Standard Deviation 45.1 fL RDW Coefficient of Variation 13.5 % Immature Granulocyte % (Auto) 0.1 % Immature Granulocyte # (Auto) 0.01 K/uL Sodium Level 140 mmol/L Potassium Level 3.7 mmol/L Chloride Level 107 mmol/L Carbon Dioxide Level 27 mmol/L Anion Gap 6.0 mmol/L Blood Urea Nitrogen 10 mg/dl Creatinine 0.87 mg/dl Est Creatinine Clear Calc Drug Dose 97.0 ml/min Estimated GFR () 88.2 Estimated GFR (Non- 76.1 BUN/Creatinine Ratio 10.9 Random Glucose 107 mg/dl Calcium Level 8.1 mg/dl Phosphorus Level 2.6 mg/dl Magnesium Level 2.2 mg/dl Test 09/25/17 16:35 Bedside Glucose 104 mg/dl Assessment & Plan Recurrent syncope 4-5 episodes of syncope correlating with bradycardia/asystole in the ER. CT head and carotid Doppler normal S/P Pacemaker placement today No post op complications Cardiology on board Continue monitor in telemetry Left gluteal hematoma Due to fall on buttock Surgery was consulted and no acute surgical intervention. Conservative management with pain control, ice packs, and close monitoring. Monitor DVT Acute diverticulitis Seen on CT abdomen Asymptomatic Elevated WBC on admission On IV Zosyn Will change to Flagyl and Cipro on discharge Electrolytes Hypophosphatemia resolved Prediabetes HbA1c 6.3 Lifestyle modification Repeat Hba1c in 6 months DVT px on SCDs ( recent Pacemaker placement) CODE STATUS FULL CODE Current Inpatient Medications: Current Inpatient Medications Medications (Trade) Dose Ordered Sig/Kari Route Start Time Stop Time Status Last Admin Dose Admin Acetaminophen (Tylenol Tab) 650 mg Q4H PRN PO 09/23/17 20:30 10/23/17 20:29 09/25/17 15:53 650 MG Al Hydrox/Mg Hydrox/Simethicone (Maalox Max Susp) 15 ml Q4H PRN PO 09/23/17 20:30 10/23/17 20:29 Ondansetron HCl (Zofran Inj) 4 mg Q6H PRN IV 09/23/17 20:30 10/23/17 20:29 09/25/17 12:20 4 MG Nitroglycerin (Nitrostat Tab) 0.4 mg UD PRN SL 09/23/17 20:30 10/23/17 20:29 Polyethylene (Miralax Powder Packet) 17 gm DAILY PRN PO 09/23/17 20:30 10/23/17 20:29 Insulin Aspart (novoLOG ASPART) SLIDING SCALE G... ACHS SC 09/23/17 22:00 10/23/17 21:59 Glucose (Glucose 40% Gel) 15-30 GRAMS 15 GRAMS... UD PRN PO 09/23/17 22:00 10/23/17 21:59 Glucose (Glucose Chew Tab) 4-8 Tablets 4 Tabl... UD PRN PO 09/23/17 22:00 10/23/17 21:59 Dextrose (Dextrose 50% 50ML Syringe) 25-50ML 25ML FOR ... UD PRN IV 09/23/17 22:00 10/23/17 21:59 Glucagon (Glucagon Inj) 1 mg UD PRN IM 09/23/17 22:00 10/23/17 21:59 Carbohydrates (Carbohydrates For Hypoglycemia) 15-30 GRAMS 15 grams if BSG 54-69... UD PRN PO 09/23/17 22:00 10/23/17 21:59 Piperacillin Sod/ Tazobactam Sod 3.375 gm/Dextrose 115 ml @ 28.75 mls/ hr Q8H IV 09/24/17 04:00 10/04/17 03:59 09/25/17 12:11 28.75 MLS/HR Miscellaneous Information (Consult) 1 ea UD PRN N/A 09/23/17 22:30 10/23/17 22:29 Sodium Chloride ([place] Nasal [place]) 1 sprays PRN PRN NA 09/24/17 04:15 10/24/17 04:14 Fluticasone Propionate (Flonase Nasal [place]) 1 sprays DAILY NA 09/24/17 04:15 10/24/17 04:14 09/24/17 07:54 1 SPRAYS Lactated Ringer's 1,000 ml @ 15 mls/hr Q24H ONCE IV 09/25/17 08:00 09/26/17 07:59 09/25/17 08:03 15 MLS/HR Cefazolin Sodium 2000 mg/Syringe 15 ml @ 3.75 mls/ min PREOP IV 09/25/17 06:00 09/25/17 18:00 09/25/17 06:00 3.75 MLS/MIN Ketorolac Tromethamine (Toradol Tab) 10 mg Q6H PRN PO 09/25/17 10:30 09/30/17 10:29 09/25/17 12:20 10 MG
[2017-09-26] MEDS: ACETAMINOPHEN 325 MG TAB PO PRN ×2 (00:38→07:32)
[2017-09-26 03:47] VITALS: BP 122/75; PULSE 79; TEMP 36.9; O2SAT 97
[2017-09-26] MEDS: PIPERACILL/TAZOBAC IV 3.375 GM in DEXTROSE 5% 100ML 100 ML IV SCH (04:33)
[2017-09-26 06:33] LABS: BASO % 0.3 %; BASO ABS # 0.03 K/uL (0-0.2); EOS % 0.7 %; EOS ABS # 0.08 K/uL (0-0.5); HEMATOCRIT 35.9 % (37-47); HEMOGLOBIN 11.7 g/dL (12.0-16.0); IG# 0.03 K/uL (0.00-0.02); LYMPH % 23.1 %; LYMPH ABS # 2.55 K/uL (1.2-3.4); MEAN CELL VOLUME 90.9 fL (80-100); MEAN CORPUSCULAR HEMOGLOBIN 29.6 pg (25-34); MEAN CORPUSCULAR HGB CONC 32.6 g/dl (32-36); MEAN PLATELET VOLUME 10.1 fL (7.4-10.4); MONO % 10.4 %; MONO ABS # 1.15 K/uL (0.11-0.59); NEUT % 65.2 %; NEUT ABS # 7.22 K/uL (1.4-6.5); PLATELET COUNT 263 K/uL (130-400); RED CELL DISTRIBUTION WIDTH CV 13.2 % (11.5-14.5); WHITE BLOOD COUNT 11.06 K/uL (4.8-10.8)
--- NOTE | 2017-09-26 06:50 | DIAGNOSTIC IMAGING REPORT ---
CHEST 2 VIEWS ROUTINE HISTORY: 52 years-old Female EXACT TIME ORDERED Evaluate for pneumothorax and lead placement status post placement of a left subclavian pacer COMPARISON: Chest radiograph 09/23/2017 TECHNIQUE: PA and lateral views of the chest FINDINGS: Cardiomediastinal and hilar silhouettes are within normal limits. Left subclavian pacer is noted with leads overlying the expected locations of the right atrium and right ventricle. The leads appear to be intact. No postprocedural pneumothorax identified. No retained foreign body. Lateral view is limited secondary to positioning of the patient's arms. No pleural effusion, focal airspace consolidation or overt pulmonary edema. The bones of the chest appear grossly intact. IMPRESSION: Status post placement of a left subclavian pacer with intact leads. No postprocedural pneumothorax. The above report was generated using voice recognition software. It may contain grammatical, syntax or spelling errors. Electronically signed by: Imer Gonzalez M.D. 09/26/2017 6:49 AM Dictated Date/Time: 09/26/2017 6:47 AM
[2017-09-26 07:11] LABS: CALCIUM 8.2 mg/dl (8.5-10.1); CREATININE 0.91 mg/dl (0.60-1.20); POTASSIUM 3.7 mmol/L (3.5-5.1)
[2017-09-26] MEDS: FLUTICASONE PROPIONATE NA SPR 16 GM BTL SCH (07:32)
[2017-09-26] MEDS: INSULIN ASPART 100 UNITS/ML 3 ML PEN SC SCH (07:32)
[2017-09-26 07:54] VITALS: BP 127/78; PULSE 79; TEMP 37.1; O2SAT 98
--- NOTE | 2017-09-26 09:56 | Cardiology Follow-Up ---
Subjective General Date of Service: Sep 26, 2017. Chief Complaint: SSS Pt evaluation today including: conversation w/ patient, physical exam, chart review, lab review, review of studies, review of inpatient medication list History of Present Illness Patient feeling well this morning. Sinus headache slowly improving. Pain in left buttock is also improving. Mild pacer incisional discomfort noted. No erythema or drainage. No cough, fever, chills. NO chest pain. Allergies Coded Allergies: No Known Allergies (Unverified , 09/23/17) Social History Smoking Status: Never Smoker Hx Alcohol Use - Type And Amou: Yes (4oz of vodka 2 days/week) Problem List Medical Problems: (1) Contusion of buttock Status: Acute (2) Fall Status: Acute (3) Hypophosphatemia Status: Acute (4) Syncope Status: Acute Review of Systems Respiratory: No cough, No sputum, No wheezing, No shortness of breath, No dyspnea at rest, No hemoptysis Cardiac: No chest pain, No orthopnea, No PND, No edema, No palpitations Physical Exam Vital Signs Last Vital Signs Documentation Date Time Temp Pulse Resp B/P (MAP) Pulse Ox O2 Delivery O2 Flow Rate FiO2 09/26/17 08:00 Room Air 09/26/17 07:54 37.1 79 20 127/78 (94) 98 09/23/17 18:42 3.0 Physical Exam Constitutional: General Apperance: overweight Level of Distress: NAD Psychiatric: Mental Status: active & alert Head: normocephalic Eyes: EOM: EOMI ENMT: normal ENT inspection, hearing grossly normal Neck: supple, no masses Lungs: Respiratory effort: no dyspnea, good air movement Auscultation: breath sounds normal, no wheezing Cardiovascular: Heart Auscultation: RRR, no murmurs, no rubs, no gallops, pertinent finding (pacer site without signfiinat erythema or drainage.) Peripheral Pulses: Bruits: none appreciated Abdomen: Bowel Sounds: normal Inspection & Palpation: soft, no tenderness, guarding & rebound, no masses Musculoskeletal: normal strength (5/5 throughout) Extremities: no edema Neurologic: Cranial Nerves: grossly intact Sensation: grossly intact Assessment and Plan Assessment and Plan ASSESSMENT and PLAN: 1. symptomatic bradycardia/SSS, with 4-5 episodes of syncope correlating with bradycardia/asystole in the ER. -patient underwent PPM. Tolerated procedure. -Device functioning appropriately 2. Chest pressure, resolved. -normal echo -non ischemic EKG -cardiac enzymes x3 3. Elevated WBC, now improved no signs of infectious process blood cultures - prelim negative. Patient to f/u with [facility] Cardiology -Device check scheduled on 10/04/2017 at 9 AM -Hospital f/u appt scheduled on 10/08/17 at 11:[address] Pérez Please provide address of clinic - [facility] [address] [place] [id number] CARDIOLOGY ATTENDING ADDENDUM: The patient was seen and personally examined. Agree with Mindi Serrato PA-C's findings and plans as documented above. Subjective: Patient without complaints Telemetry: Stable sinus rhythm Device check revealed appropriate device functioning, pacing less than 0.1 10th percent of the time. No recurrent syncope. Chest x-ray reveals appropriate lead position and no pneumothorax. Impression, syncope secondary to symptomatic bradycardia, sick sinus syndrome for which patient underwent permanent pacemaker. Post device follow-up appointments made as above Laboratory Results Last 24 Hours Test 09/25/17 11:22 09/25/17 16:35 09/25/17 20:33 09/26/17 06:08 Bedside Glucose 132 mg/dl 104 mg/dl 105 mg/dl White Blood Count 11.06 K/uL Red Blood Count 3.95 M/uL Hemoglobin 11.7 g/dL Hematocrit 35.9 % Mean Corpuscular Volume 90.9 fL Mean Corpuscular Hemoglobin 29.6 pg Mean Corpuscular Hemoglobin Concent 32.6 g/dl Platelet Count 263 K/uL Mean Platelet Volume 10.1 fL Neutrophils (%) (Auto) 65.2 % Lymphocytes (%) (Auto) 23.1 % Monocytes (%) (Auto) 10.4 % Eosinophils (%) (Auto) 0.7 % Basophils (%) (Auto) 0.3 % Neutrophils # (Auto) 7.22 K/uL Lymphocytes # (Auto) 2.55 K/uL Monocytes # (Auto) 1.15 K/uL Eosinophils # (Auto) 0.08 K/uL Basophils # (Auto) 0.03 K/uL RDW Standard Deviation 44.0 fL RDW Coefficient of Variation 13.2 % Immature Granulocyte % (Auto) 0.3 % Immature Granulocyte # (Auto) 0.03 K/uL Sodium Level 137 mmol/L Potassium Level 3.7 mmol/L Chloride Level 104 mmol/L Carbon Dioxide Level 26 mmol/L Anion Gap 6.0 mmol/L Blood Urea Nitrogen 14 mg/dl Creatinine 0.91 mg/dl Est Creatinine Clear Calc Drug Dose 93.2 ml/min Estimated GFR () 83.5 Estimated GFR (Non- 72.0 BUN/Creatinine Ratio 15.4 Random Glucose 124 mg/dl Calcium Level 8.2 mg/dl Magnesium Level 2.3 mg/dl Test 09/26/17 07:25 Bedside Glucose 124 mg/dl
--- NOTE | 2017-09-26 10:16 | Cardiology Follow-Up ---
Subjective Date of Service: Sep 26, 2017. Pt evaluation today including: conversation w/ patient, physical exam, lab review, review of studies, review of inpatient medication list, conversation w/ attending History of Present Illness This is a very pleasant 52-year-old woman who has a history of recent palpitations and syncope when she was young, and more recently occasional lightheaded spells for 1 or 2 seconds, often while driving, and then had a fall yesterday. It has been raining and she was at her [place]'s cabin when she slipped and landed on her left buttock (she has a significant bruise there). She specifically denies any kind of lightheadedness, dizziness or presyncope leading to the fall. It sounds as though immediately afterward she did have periods of lightheadedness and presyncope, and shortly after had several episodes of quite severe lightheadedness and dizziness and at least one episode of witnessed syncope prompting her to come into the emergency room. After coming to the hospital while standing up getting orthostatic blood pressure signs she had severe bradycardia and asystole resulting in syncope. Sinus arrest of at least 7 seconds is documented, associated with severe sinus bradycardia and secondary pauses. There did not appear to be heart block but that is inconclusive with severe sinus bradycardia. This seemed to reproduce her symptoms. Interestingly until she had a fall and injury she does not recall having severe episodes such as this, although did have the less severe episodes as described. She is actually up here from [place] caring for her father who had a severe illness with anaplasmosis. She is accompanied by her sister who also came up from [place]. Given the severity of this event and the severe bradycardia a dual-chamber pacemaker was implanted September 25, 2017. That was uneventful. Social History Smoking Status: Never Smoker History of Alcohol Use: Yes (4oz of vodka 2 days/week) Review of Systems Respiratory: No cough, No sputum, No wheezing, No shortness of breath, No dyspnea at rest, No hemoptysis Cardiac: No chest pain, No orthopnea, No PND, No edema, No palpitations L buttock pain Objective Vital Signs Past 12 Hours Date Time Temp Pulse Resp B/P (MAP) Pulse Ox O2 Delivery O2 Flow Rate FiO2 09/26/17 08:00 Room Air 09/26/17 07:54 37.1 79 20 127/78 (94) 98 Room Air 09/26/17 03:47 36.9 79 18 122/75 (91) 97 Room Air 09/25/17 23:48 37.1 82 17 144/79 (100) 100 Room Air Last Recorded Weight-Kilograms: 107.000 Physical Exam Constitutional: General Apperance: overweight Level of Distress: NAD Lungs: Respiratory effort: no dyspnea, good air movement Auscultation: breath sounds normal, no wheezing Cardiovascular: Heart Auscultation: RRR, no murmurs, no rubs, no gallops Peripheral Pulses: Bruits: none appreciated Extremities: no edema L buttock bruise The pacemaker incision is clean and dry, minimal bleeding, minimal ecchymosis Data Laboratory Results: Last 24 Hours Test 09/25/17 11:22 09/25/17 16:35 09/25/17 20:33 09/26/17 06:08 Bedside Glucose 132 mg/dl 104 mg/dl 105 mg/dl White Blood Count 11.06 K/uL Red Blood Count 3.95 M/uL Hemoglobin 11.7 g/dL Hematocrit 35.9 % Mean Corpuscular Volume 90.9 fL Mean Corpuscular Hemoglobin 29.6 pg Mean Corpuscular Hemoglobin Concent 32.6 g/dl Platelet Count 263 K/uL Mean Platelet Volume 10.1 fL Neutrophils (%) (Auto) 65.2 % Lymphocytes (%) (Auto) 23.1 % Monocytes (%) (Auto) 10.4 % Eosinophils (%) (Auto) 0.7 % Basophils (%) (Auto) 0.3 % Neutrophils # (Auto) 7.22 K/uL Lymphocytes # (Auto) 2.55 K/uL Monocytes # (Auto) 1.15 K/uL Eosinophils # (Auto) 0.08 K/uL Basophils # (Auto) 0.03 K/uL RDW Standard Deviation 44.0 fL RDW Coefficient of Variation 13.2 % Immature Granulocyte % (Auto) 0.3 % Immature Granulocyte # (Auto) 0.03 K/uL Sodium Level 137 mmol/L Potassium Level 3.7 mmol/L Chloride Level 104 mmol/L Carbon Dioxide Level 26 mmol/L Anion Gap 6.0 mmol/L Blood Urea Nitrogen 14 mg/dl Creatinine 0.91 mg/dl Est Creatinine Clear Calc Drug Dose 93.2 ml/min Estimated GFR () 83.5 Estimated GFR (Non- 72.0 BUN/Creatinine Ratio 15.4 Random Glucose 124 mg/dl Calcium Level 8.2 mg/dl Magnesium Level 2.3 mg/dl Test 09/26/17 07:25 Bedside Glucose 124 mg/dl Imaging: Chest x-ray shows good lead position, no pneumothorax EKG: Sinus rhythm, appropriate pacemaker inhibition Telemetry reviewed: Predominantly sinus rhythm with appropriate pacemaker inhibition Pacemaker function: His neck evaluation shows excellent pacing and sensing characteristics. Assessment and Plan 1. Syncope: Based on the recurrence of these symptoms and the documentation of severe bradycardia and atrial asystole her syncopal episodes appeared to be due to sinus bradycardia and arrest. Why she is having so much difficulty with it now is unclear, perhaps it is in part vagally mediated now with her left buttock injury. With her prior presyncopal events, especially while driving, even without injury this is worrisome. 2. Sinus arrest: She did have prior presyncopal events of unknown etiology and the episode prompting this admission was profound enough I do not think we can ignore it. Even if this is in part vaguely mediated I think she should have a pacemaker, if she has a vasodepressor component she may still have symptoms and I explained that to her. Her pacemaker was implanted yesterday and is functioning well. 3. Palpitations: She has long-standing palpitations, I believe these have been identified in the past to be premature beats (based on her history). I do not believe these have been associated with her presyncopal episodes. She is not any specific treatment for them and they have not been terribly problematic. Interestingly she had the same sensation when we checked her pacemaker this morning suggesting that these are indeed premature beats as pacing is caused during threshold testing. 4. Postop day #1: She is doing well today, the site looks good, the measurements to the device are good and she has no pneumothorax on chest x-ray with good lead position. She is stable for discharge from my standpoint. She will follow[facility] with [facility] cardiology. Thank you for allowing me to participate in her care.
--- NOTE | 2017-09-26 10:43 | Progress Note ---
Medicine Progress Note Date & Time of Visit: Sep 26, 2017 at 10:34. Subjective Pt was seen and examined Lying in bed with no distress Pt said that she feels much better today She said that she has tenderness around the surgical area Denies any chest pain, palpitation and SOB Objective Last 8 Hrs Date Time Temp Pulse Resp B/P (MAP) Pulse Ox O2 Delivery O2 Flow Rate FiO2 09/26/17 08:00 Room Air 09/26/17 07:54 37.1 79 20 127/78 (94) 98 Room Air 09/26/17 03:47 36.9 79 18 122/75 (91) 97 Room Air Physical Exam: General- No acute distress Head- atraumatic Eyes- PERRL, EOMI ENT- oropharynx clear Neck- supple, no JVD Lungs- clear to auscultation Heart- regular rhythm; no murmur Abdomen- normal bowel sounds, soft Extremities- no pretibial edema, Neuro- alert, oriented x 3; PERRL, EOMI; no facial palsy Skin- warm & dry Laboratory Results: Last 24 Hours Test 09/25/17 11:22 09/25/17 16:35 09/25/17 20:33 09/26/17 06:08 Bedside Glucose 132 mg/dl 104 mg/dl 105 mg/dl White Blood Count 11.06 K/uL Red Blood Count 3.95 M/uL Hemoglobin 11.7 g/dL Hematocrit 35.9 % Mean Corpuscular Volume 90.9 fL Mean Corpuscular Hemoglobin 29.6 pg Mean Corpuscular Hemoglobin Concent 32.6 g/dl Platelet Count 263 K/uL Mean Platelet Volume 10.1 fL Neutrophils (%) (Auto) 65.2 % Lymphocytes (%) (Auto) 23.1 % Monocytes (%) (Auto) 10.4 % Eosinophils (%) (Auto) 0.7 % Basophils (%) (Auto) 0.3 % Neutrophils # (Auto) 7.22 K/uL Lymphocytes # (Auto) 2.55 K/uL Monocytes # (Auto) 1.15 K/uL Eosinophils # (Auto) 0.08 K/uL Basophils # (Auto) 0.03 K/uL RDW Standard Deviation 44.0 fL RDW Coefficient of Variation 13.2 % Immature Granulocyte % (Auto) 0.3 % Immature Granulocyte # (Auto) 0.03 K/uL Sodium Level 137 mmol/L Potassium Level 3.7 mmol/L Chloride Level 104 mmol/L Carbon Dioxide Level 26 mmol/L Anion Gap 6.0 mmol/L Blood Urea Nitrogen 14 mg/dl Creatinine 0.91 mg/dl Est Creatinine Clear Calc Drug Dose 93.2 ml/min Estimated GFR () 83.5 Estimated GFR (Non- 72.0 BUN/Creatinine Ratio 15.4 Random Glucose 124 mg/dl Calcium Level 8.2 mg/dl Magnesium Level 2.3 mg/dl Test 09/26/17 07:25 Bedside Glucose 124 mg/dl Assessment & Plan Recurrent syncope 4-5 episodes of syncope correlating with bradycardia/asystole in the ER. CT head and carotid Doppler normal S/P Pacemaker placement done on 09/25 No post op complications Cardiology on board No arrhythmia on tele monitor Device functioning appropriately Stable from cardiology standpoint to discharge home Left gluteal hematoma Due to fall on buttock Surgery was consulted and no acute surgical intervention. Hgb stable Acute diverticulitis Seen on CT abdomen Asymptomatic Elevated WBC on admission On IV Zosyn Continue Flagyl and Cipro to complete 7 days course Electrolytes Hypophosphatemia resolved Prediabetes HbA1c 6.3 Lifestyle modification Repeat Hba1c in 6 months DVT px on SCDs ( recent Pacemaker placement) CODE STATUS FULL CODE Disposition -Device check scheduled on 10/04/2017 at 9 AM -Hospital f/u appt scheduled on 10/08/17 at 11:[address] Pérez -Address: [address] [place] [address] [place] [address] -Follow up with your PCP in [place] Current Inpatient Medications: Current Inpatient Medications Medications (Trade) Dose Ordered Sig/Kari Route Start Time Stop Time Status Last Admin Dose Admin Acetaminophen (Tylenol Tab) 650 mg Q4H PRN PO 09/23/17 20:30 10/23/17 20:29 09/26/17 07:32 650 MG Al Hydrox/Mg Hydrox/Simethicone (Maalox Max Susp) 15 ml Q4H PRN PO 09/23/17 20:30 10/23/17 20:29 Ondansetron HCl (Zofran Inj) 4 mg Q6H PRN IV 09/23/17 20:30 10/23/17 20:29 09/25/17 12:20 4 MG Nitroglycerin (Nitrostat Tab) 0.4 mg UD PRN SL 7/30/18 20:30 10/23/17 20:29 Polyethylene (Miralax Powder Packet) 17 gm DAILY PRN PO 09/23/17 20:30 10/23/17 20:29 Insulin Aspart (novoLOG ASPART) SLIDING SCALE G... ACHS SC 09/23/17 22:00 10/23/17 21:59 Glucose (Glucose 40% Gel) 15-30 GRAMS 15 GRAMS... UD PRN PO 09/23/17 22:00 10/23/17 21:59 Glucose (Glucose Chew Tab) 4-8 Tablets 4 Tabl... UD PRN PO 09/23/17 22:00 10/23/17 21:59 Dextrose (Dextrose 50% 50ML Syringe) 25-50ML 25ML FOR ... UD PRN IV 09/23/17 22:00 10/23/17 21:59 Glucagon (Glucagon Inj) 1 mg UD PRN IM 09/23/17 22:00 10/23/17 21:59 Carbohydrates (Carbohydrates For Hypoglycemia) 15-30 GRAMS 15 grams if BSG 54-69... UD PRN PO 09/23/17 22:00 10/23/17 21:59 Piperacillin Sod/ Tazobactam Sod 3.375 gm/Dextrose 115 ml @ 28.75 mls/ hr Q8H IV 09/24/17 04:00 10/04/17 03:59 09/26/17 04:33 28.75 MLS/HR Miscellaneous Information (Consult) 1 ea UD PRN N/A 09/23/17 22:30 10/23/17 22:29 Sodium Chloride ([place] Nasal [place]) 1 sprays PRN PRN NA 09/24/17 04:15 10/24/17 04:14 Fluticasone Propionate (Flonase Nasal [place]) 1 sprays DAILY NA 09/24/17 04:15 10/24/17 04:14 09/24/17 07:54 1 SPRAYS Ketorolac Tromethamine (Toradol Tab) 10 mg Q6H PRN PO 09/25/17 10:30 09/30/17 10:29 09/25/17 12:20 10 MG
[2017-09-26] MEDS ORDERED: METR-162 PO (10:49)
[2017-09-26] MEDS ORDERED: CIPR-255 PO (10:49)
--- NOTE | 2017-09-26 11:01 | Discharge Instructions ---
Discharge Instructions Date of Service Sep 26, 2017. Admission Reason for Admission: Bradycardia,Syncopal Episodes Discharge Discharge Diagnosis / Problem: Syncope, Acute diverticulitis, Left gluteal hematoma Discharge Goals Goal(s): Decrease discomfort, Improve function, Improve disease control Activity Recommendations Activity Limitations: resume your previous activity . Instructions / Follow-Up Instructions / Follow-Up Please Follow up with your primary care provider in [place] Follow with Cardiology Dr. Pérez on 10/08/17 at 11:[address] [facility] Cardiology clinic. Clinic Address: [address] [place], [place] [address] [place] [address] Pacemaker device check scheduled on 10/04/2017 at 9 AM at the [facility] Cardiology [facility] Complete course of antibiotic with Cipro and Flagyl for the diverticulitis Your physician will need to arrange for a colonoscopy within 6 to 8 weeks after diverticulitis Don't drive until your doctor (At next cardiology visit)says it's OK. OK to shower tomorrow Do not lift the left elbow over the left shoulder for 1 month Do not lift no more than 10 lbs for 1 week Do not stretch your arm behind your back for as long as directed by your doctor. Keep incision area clean and dry Check your incision area for signs of infection (redness, swelling, drainage, or warmth). Before you receive any treatment, tell all healthcare providers (including your dentist) that you have a pacemaker. Keep your cell phone away from your pacemaker. Don't carry the phone in your shirt pocket overlying the pacemaker, even when it's turned off. Avoid strong magnets If you order for an MRI in the future, please inform that you have a pacemaker Current Hospital Diet Patient's current hospital diet: AHA Diet (Heart Healthy) Discharge Diet Recommended Diet: AHA Diet (Heart Healthy) Pending Studies Studies pending at discharge: no Laboratory Results Hemoglobin A1c Test 09/24/17 04:21 Range/Units Estimated Average Glucose 134 mg/dl Hemoglobin A1c 6.3 H 4.5-5.6 % Medical Emergencies . Who to Call and When: Medical Emergencies: If at any time you feel your situation is an emergency, please call 911 immediately. . Non-Emergent Contact Non-Emergency issues call your: Primary Care Provider Call Non-Emergent contact if: temperature is above 101, your pain is worsening , you have any medication questions . . "Provider Documentation" section prepared by Olivier Ervin. .
[2017-09-26 11:11] VITALS: BP 127/78; PULSE 79; TEMP 37.1; O2SAT 98
--- NOTE | 2017-09-30 08:38 | Discharge Summary ---
Discharge Summary Date of Service Sep 30, 2017. Discharge Summary Admission Date: Sep 23, 2017 at 20:33 Discharge Date: Sep 26, 2017 Discharge Disposition: Home Principal Diagnosis: Recurrent syncope Secondary Diagnoses/Problems: S/P Pacemaker placement on 09/25 Left gluteal hematoma Acute diverticulitis Electrolytes Imbalance Prediabetes Procedures: S/P Pacemaker placement ECHO Interpretation Summary * Name: BECCA HERNÁNDEZ Study Date: 09/24/2017 07:14 AM BP: 111/62 mmHg * Patient Location: [facility]\\S\\16\\S\\1 HR: 88 * : 1965 (M/d/yyyy) Gender: Female Height: 69 in * Age: 52 yrs Ethnicity: CA Weight: 232 lb * Ordering Physician: Gordon Sheikh * Referring Physician: Self, Referred * Performed By: Manju Stanley RCS * * Reason For Study: SYNCOPE * BSA: 2.2 m2 * The study was technically adequate. * -- Conclusions -- * No regional wall motion abnormalities noted. * The LV Ejection Fraction = 65-70%. * The right ventricle is normal in size and function. * Doppler findings do not suggest pulmonary hypertension. * There is no significant valvular heart disease. Procedure Details * A complete two-dimensional transthoracic echocardiogram was performed (2D, M- mode, Doppler and color flow Doppler). Left Ventricle * The left ventricle is normal in size. * There is mild concentric left ventricular hypertrophy. * Left ventricular systolic function is normal. * Ejection Fraction = 65-70%. * The left ventricular wall motion is normal. * No regional wall motion abnormalities noted. Right Ventricle * The right ventricle is normal in size and function. Atria * The left atrial size is normal. * Right atrial size is normal. * There is no evidence of atrial septal defect, but resolution does not allow assessment for a patent foramen ovale. Mitral Valve * There is mild mitral annular calcification. * There is no mitral valve stenosis. * Significant mitral regurgitation is absent. Tricuspid Valve * The tricuspid valve is normal. * There is no tricuspid stenosis. * Significant tricuspid regurgitation is absent. * Doppler findings do not suggest pulmonary hypertension. Aortic Valve * The aortic valve is trileaflet. * Aortic stenosis is absent. * There is no significant aortic regurgitation. Pulmonic Valve * The pulmonary valve is not well seen, but the Doppler examination is normal without significant regurgitation or stenosis. Great Vessels * The aortic root and proximal ascending aorta are normal sized. Pericardium/Pleural * There is no pericardial effusion. Great Vessels * Normal inferior vena cava diameter and respiratory variation suggests normal central venous pressure. Left Ventricular Diastolic Function * Grade I diastolic dysfunction, (abnormal relaxation pattern). BILATERAL CAROTID DOPPLER STUDY HISTORY: syncope workup COMPARISON: None. TECHNIQUE: Real-time, grayscale, and color Doppler sonography of the carotid arteries was performed. Imaging reviewed in the transverse and longitudinal planes. All measurements were calculated based on NASCET criteria. FINDINGS: Antegrade flow is seen in the bilateral vertebral arteries. The brachial pressures are hemodynamically similar. The peak systolic velocity within the right ECA was 148 cm/s and the left ECA was 155 cm/s. The peak systolic velocity within the right ICA is 103 cm/s. The right systolic ratio is 1.5. The peak systolic velocity within the left ICA is 100 cm/s. The left systolic ratio is 1.3. IMPRESSION: 1. No hemodynamically significant stenosis seen within the bilateral common or internal carotid arteries. 2. Mild narrowing of the bilateral external carotid arteries based on velocity criteria. Electronically signed by: Andrés Bonds M.D. 09/24/2017 2:23 PM Dictated Date/Time: 09/24/2017 2:[address] AND PELVIS CT WITHOUT CONTRAST CT DOSE: 803.04 mGy.cm HISTORY: FALL. CONTUSION IN BUTTOCK REGION TECHNIQUE: Multiaxial CT images of the abdomen and pelvis were performed without contrast. A dose lowering technique was utilized adhering to the principles of ALARA. COMPARISON STUDY: Pelvis and left hip 09/23/2017. FINDINGS: Within the left lower flank/gluteal region there is a 16 x 13 x 3 cm subcutaneous hematoma. There is surrounding fat stranding consistent with additional contusion. Mild asymmetric enlargement of the left gluteus raegan muscle and comparison to the right which likely represents a small intramuscular hematoma. No fractures within the visualized osseous structures. The lung bases are clear. No retroperitoneal hematoma. The unenhanced liver, spleen, adrenal glands, and pancreas are unremarkable. Subtle hyperdensity layering within the gallbladder may represent small stones. Normal left kidney. There are 3 stones within the right kidney with the largest measuring 1 cm. No ureteral stones. No hydronephrosis. The bladder, uterus, and adnexa are unremarkable. No retroperitoneal lymphadenopathy. Suboptimal evaluation for bowel pathology due to the lack of intravenous and oral contrast. However, no evidence for bowel obstruction. Multiple colonic diverticula. There is minimal inflammatory change adjacent to a single diverticulum within the distal descending colon best seen on image 268. This is consistent with a developing acute diverticulitis. No perforation or abscess. Normal appendix. IMPRESSION: 1. There is a 16 x 13 x 3 cm subcutaneous hematoma within the left lower flank/gluteal region. There is surrounding fat stranding consistent with additional subcutaneous contusion. 2. Mild asymmetric enlargement of the left gluteus raegan muscle in comparison to the right which likely represents a small intramuscular hematoma. 3. No fractures within the visualized osseous structures. 4. Developing acute diverticulitis at the descending colon. No perforation or abscess identified. 5. Right-sided nephrolithiasis. No hydronephrosis. Electronically signed by: Andrés Bonds M.D. 09/23/2017 9:56 PM Dictated Date/Time: 09/23/2017 9:[address] SCAN OF THE BRAIN WITHOUT IV CONTRAST CLINICAL HISTORY: Change in mental status. COMPARISON STUDY: No priors. TECHNIQUE: Unenhanced axial CT scan of the brain is performed from the vertex to the skull base. A dose lowering technique was utilized adhering to the principles of ALARA. CT DOSE: 614.27 mGy.cm FINDINGS: Brain parenchyma: The brain parenchyma is normal in appearance. There is no hemorrhage, mass effect, or evidence of acute territorial ischemia by CT criteria. Fitzpatrick-white matter is preserved. No extra-axial fluid collection is seen. Ventricles, sulci, cisterns: Normal in configuration. Intracranial vasculature: The visualized intracranial vasculature at the skull base is normal in appearance. Calvarium: Unremarkable. Sinuses and mastoids: The visualized paranasal sinuses are clear. The mastoid air cells are well pneumatized. Orbits: The bony orbits are grossly intact. IMPRESSION: There is no hemorrhage, mass effect, or evidence of acute territorial ischemia by CT criteria. Electronically signed by: Cyril Lipscomb M.D. 09/23/2017 7:30 PM Dictated Date/Time: 09/23/2017 7:29 PM CHEST 2 VIEWS ROUTINE HISTORY: 52 years-old Female EXACT TIME ORDERED Evaluate for pneumothorax and lead placement status post placement of a left subclavian pacer COMPARISON: Chest radiograph 09/23/2017 TECHNIQUE: PA and lateral views of the chest FINDINGS: Cardiomediastinal and hilar silhouettes are within normal limits. Left subclavian pacer is noted with leads overlying the expected locations of the right atrium and right ventricle. The leads appear to be intact. No postprocedural pneumothorax identified. No retained foreign body. Lateral view is limited secondary to positioning of the patient's arms. No pleural effusion, focal airspace consolidation or overt pulmonary edema. The bones of the chest appear grossly intact. IMPRESSION: Status post placement of a left subclavian pacer with intact leads. No postprocedural pneumothorax. The above report was generated using voice recognition software. It may contain grammatical, syntax or spelling errors. Electronically signed by: Imer Gonzalez M.D. 09/26/2017 6:49 AM Dictated Date/Time: 09/26/2017 6:47 AM CHEST ONE VIEW PORTABLE HISTORY: elevated wbc, productive cough COMPARISON: None. FINDINGS: The lungs are clear. Cardiac silhouette is normal in size. No pleural effusions. No pneumothorax. IMPRESSION: No acute process. Electronically signed by: Andrés Bonds M.D. 09/23/2017 8:18 PM Dictated Date/Time: 09/23/2017 8:17 PM SACRUM COCCYX MIN 2 VIEWS CLINICAL HISTORY: s/p fall, sacral pain and low back pain and L gluteal ecchymosis COMPARISON STUDY: Pelvis and left hip 09/23/2017. FINDINGS: No fractures or subluxation within the sacrum or coccyx. Anterior angulation of the coccyx is considered a normal variant. Presacral soft tissues are intact. There is an oval-shaped 14 x 4.5 cm density within the gluteal soft tissues best seen on the lateral view. This favors a soft tissue hematoma. IMPRESSION: 1. No fractures within the sacrum or coccyx. 2. A 14 x 4.5 cm density within the gluteal soft tissues likely represents a soft tissue hematoma. Electronically signed by: Andrés Bonds M.D. 09/23/2017 8:44 PM Dictated Date/Time: 09/23/2017 8:42 PM L PELVIS/UNILATERAL HIP 1 VIEW CLINICAL HISTORY: s/p fall. Left hip pain. COMPARISON STUDY: None. FINDINGS: No fracture or dislocation within the pelvis or hips. Mild cartilage space narrowing within the left hips and small osteophytes at the acetabula consistent with degenerative change. Soft tissues are unremarkable. The sacrum appears intact. IMPRESSION: Mild degenerative changes within the bilateral hips. No fracture or dislocation within the pelvis or hips. Electronically signed by: Andrés Bonds M.D. 09/23/2017 8:17 PM Dictated Date/Time: 09/23/2017 8:11 PM Consultations: Cardio Medication Reconciliation New Medications: Ciprofloxacin Hcl (Cipro) 500 Mg Tab 500 MG PO BID for 3 Days, #6 TAB Continued Medications: Acetaminophen (Tylenol Arthritis Ext Rel) 650 Mg Tab 650 MG PO UD PRN for Pain, TAB TAKE PER PACKAGE DIRECTIONS Admission Information HPI (per Admitting provider): CHIEF COMPLAINT: Syncope. HISTORY OF PRESENT ILLNESS: This is a 52-year-old female with past medical history significant for obesity and prediabetes, presents with syncopal episodes. The patient is from [place] and has come to [place] to visit her father who is sick to take care of him and also for vacation for the summer. Today, she reports it was wet because of rain and she slipped on the steps of the porch and had a mechanical fall and she fell on her buttocks. Her sister helped her to get up.When she stood up she and had a syncopal episode where her sister tried to wake her up with a slap on the face, but she noticed that her eyes were rolling up and felt itching of the shoulder, but no shaking of hands or legs, no tongue biting, no bowel or bladder incontinence. It lasted for a few seconds and she came up.Had total of 3 episodes before the EMS arrived and when she was brought into the ER, she was alert and awake and vitals stable. When they were checking her blood pressure lying, sitting, and standing, she was okay when she was lying and sitting, but when she tried to get up , she again passed out and there was a brief period of bradycardia and was not responding, but then again she came back and she is stable currently. Patient says she did not eat or drink much for last 3 days because she did not feel like drinking.Otherwise she was doing okay. Denies any headaches. No dizziness, no earache, no runny nose, no blurred vision, no sore throat or difficulty swallowing. Some congestion from her sinuses. No chest pain, no shortness of breath, no cough, no fever, no chills, no nausea, . Normal appetite. No recent weight gain or weight loss. Has some night flashes. Has some lower abdominal cramps which are there for some time. Normal bowel and bladder movements. Denies any blood in the stools or black stools. Denies any blood in the urine. No swelling of the legs, no rash. Currently, resting comfortably and hemodynamically stable. The patient had this kind of presyncopal symptoms whenever she was dehydrated in the past. Physical Exam (per Admitting): GENERAL: The patient is obese, not in distress. VITAL SIGNS: Temperature 36.9, pulse 75, respiratory rate 16, blood pressure 135/62, oxygen 99% on 3 liters. HEENT: No pallor, no icterus. Pupils equal, round, reactive to light. NECK: No JVD or neck masses, no carotid bruits. CARDIOVASCULAR: S1, S2 heard, regular rate and rhythm, no murmur, no gallop. RESPIRATORY SYSTEM: Clear to auscultation bilaterally. No wheezing, no crackles. ABDOMEN: Soft, bowel sounds present. Nontender. No distention. CENTRAL NERVOUS SYSTEM: Cranial nerves II through XII grossly intact, nonfocal. EXTREMITIES: No edema, no erythema. Hospital Course Recurrent syncope 4-5 episodes of syncope correlating with bradycardia/asystole in the ER. CT head and carotid Doppler normal S/P Pacemaker placement done on 09/25 No post op complications Cardiology on board No arrhythmia on tele monitor Device functioning appropriately Stable from cardiology standpoint to discharge home Left gluteal hematoma Due to fall on buttock Surgery was consulted and no acute surgical intervention. Hgb stable Acute diverticulitis Seen on CT abdomen Asymptomatic Elevated WBC on admission On IV Zosyn Continue Flagyl and Cipro to complete 7 days course Electrolytes Imbalance Hypophosphatemia resolved Prediabetes HbA1c 6.3 Lifestyle modification Repeat Hba1c in 6 months DVT px on SCDs ( recent Pacemaker placement) CODE STATUS FULL CODE Disposition -Device check scheduled on 10/04/2017 at 9 AM -Hospital f/u appt scheduled on 10/08/17 at 11:[address] Pérez -[address] [place] [address] -Follow up with your PCP in [place] Total time spent on discharge = 40 minutes This includes examination of the patient, discharge planning, medication reconciliation, and communication with other providers. Discharge Instructions Discharge Instructions Date of Service Sep 26, 2017. Admission Reason for Admission: Bradycardia,Syncopal Episodes Discharge Discharge Diagnosis / Problem: Syncope, Acute diverticulitis, Left gluteal hematoma Discharge Goals Goal(s): Decrease discomfort, Improve function, Improve disease control Activity Recommendations Activity Limitations: resume your previous activity . Instructions / Follow-Up Instructions / Follow-Up Please Follow up with your primary care provider in [place] Follow with Cardiology Dr. Pérez on 10/08/17 at 11:15 at the [facility] Cardiology clinic. Clinic Address: [facility] [place] [address] Pacemaker device check scheduled on 10/04/2017 at 9 AM at the [facility] Cardiology clinic Complete course of antibiotic with Cipro and Flagyl for the diverticulitis Your physician will need to arrange for a colonoscopy within 6 to 8 weeks after diverticulitis Don't drive until your doctor (At next cardiology visit)says it's OK. OK to shower tomorrow Do not lift the left elbow over the left shoulder for 1 month Do not lift no more than 10 lbs for 1 week Do not stretch your arm behind your back for as long as directed by your doctor. Keep incision area clean and dry Check your incision area for signs of infection (redness, swelling, drainage, or warmth). Before you receive any treatment, tell all healthcare providers (including your dentist) that you have a pacemaker. Keep your cell phone away from your pacemaker. Don't carry the phone in your shirt pocket overlying the pacemaker, even when it's turned off. Avoid strong magnets If you order for an MRI in the future, please inform that you have a pacemaker Current Hospital Diet Patient's current hospital diet: AHA Diet (Heart Healthy) Discharge Diet Recommended Diet: AHA Diet (Heart Healthy) Pending Studies Studies pending at discharge: no Laboratory Results Hemoglobin A1c Test 09/24/17 04:21 Range/Units Estimated Average Glucose 134 mg/dl Hemoglobin A1c 6.3 H 4.5-5.6 % Medical Emergencies . Who to Call and When: Medical Emergencies: If at any time you feel your situation is an emergency, please call 911 immediately. . Non-Emergent Contact Non-Emergency issues call your: Primary Care Provider Call Non-Emergent contact if: temperature is above 101, your pain is worsening , you have any medication questions . . "Provider Documentation" section prepared by Olivier Ervin. .
== END 2017-09-26 11:59 | disposition home or self-care (01) | DRG 242 ==
LOC: EDBD 17:42 → C.EDB 17:44 → EEVIPCON 20:33 → C.2T 20:33 → ENRESERV 21:02
PROVIDERS: ADMIT Hospitalist; ATTEND Internal Medicine
PROC: 02H63JZ Insertion of Pacemaker Lead into Right Atrium, Percutaneous Approach (ICD-10-PCS; principal; 2017-09-25 08:21)
PROC: 02HK3JZ Insertion of Pacemaker Lead into Right Ventricle, Percutaneous Approach (ICD-10-PCS; principal; 2017-09-25 08:21)
PROC: 0JH606Z Insertion of Pacemaker, Dual Chamber into Chest Subcutaneous Tissue and Fascia, Open Approach (ICD-10-PCS; principal; 2017-09-25 08:21)
DX: R55 Syncope and collapse (principal); I46.9 Cardiac arrest, cause unspecified; K57.92 Diverticulitis of intestine, part unspecified, without perforation or abscess without bleeding; S30.0XXA Contusion of lower back and pelvis, initial encounter; W00.1XXA Fall from stairs and steps due to ice and snow, initial encounter; E66.9 Obesity, unspecified; E83.39 Other disorders of phosphorus metabolism; E87.8 Other disorders of electrolyte and fluid balance, not elsewhere classified; R73.03 Prediabetes; I45.5 Other specified heart block; R00.2 Palpitations